=== PATIENT | male | born 1945 | race African-American/Black ===

== ENCOUNTER 2019-05-13 07:40 | Day surgery (SDC) | payer MEDICARE, OTHER ==
[2019-05-13 09:03] LABS: HEMATOCRIT 27.3 % (37.9-51.0); HEMOGLOBIN 9.3 g/dL (13.5-17.0); MEAN CORPUSCULAR HEMOGLOBIN 31.7 pg (27.0-33.4); MEAN CORPUSCULAR HGB CONC 34.2 g/dL (32.0-36.0); MEAN CORPUSCULAR VOLUME 92 fl (80-97); PLATELET COUNT 327 10^3/uL (150-450); RED BLOOD COUNT 2.95 10^6/uL (4.35-5.55); RED CELL DISTRIBUTION WIDTH 15.6 % (11.5-14.0); WHITE BLOOD COUNT 7.1 10^3/uL (4.0-10.5)
[2019-05-13 09:18] LABS: ANION GAP 12 (5-19); BLOOD UREA NITROGEN 39 mg/dL (7-20); CARBON DIOXIDE 28 mmol/L (22-30); CHLORIDE 97 mmol/L (98-107); GLUCOSE 149 mg/dL (75-110); POTASSIUM 5.2 mmol/L (3.6-5.0)
--- NOTE | 2019-05-13 09:48 | EKG REPORT ---
SEVERITY:- OTHERWISE NORMAL ECG - SINUS RHYTHM LEFT AXIS DEVIATION : Confirmed by: Yobani Miller MD 13-May-2019 09:47:42
[2019-05-13] MEDS ORDERED: FENTANYL CITRATE INJ/PF 100 MCG/2 ML AMPUL ONE (10:54)
[2019-05-13] MEDS ORDERED: MIDAZOLAM 2 MG/2 ML INJ ONE (10:54)
[2019-05-13] MEDS ORDERED: PROPOFOL INJ 200 MG/20 ML VIAL IV ONE (10:54)
[2019-05-13] MEDS ORDERED: ONDANSETRON HCL INJ/PF 4 MG/2 ML SDV ONE (10:54)
[2019-05-13] MEDS ORDERED: LIDOCAINE 2% INJ-PF (20 MG/ML) 10 ML AMPUL ONE (10:54)
[2019-05-13] MEDS ORDERED: LIDOCAINE 0.5% INJ-PF (5 MG/ML) 50 ML SDV ONE (10:56)
[2019-05-13] MEDS ORDERED: BUPIVACAINE HCL 0.25 % INJ/PF (2.5 MG/1 ML) 30 ML VIAL ONE (10:56)
--- NOTE | 2019-05-13 10:58 | PDOC H&P ---
General Chief Complaint: This patient has a nonfunctioning peritoneal dialysis catheter. He is currently dialyzed through a permacatheter. He is here today for removal of this catheter. It is hoped that a peritoneal dialysis catheter can be inserted in a month or so. - Current Medications/Allergies Home Medications: Aspirin [Aspir-Low] 81 mg PO DAILY 05/12/19 Furosemide [Lasix 20 mg Tablet] 20 mg PO QAM 05/12/19 Glimepiride [Amaryl 4 mg Tablet] 4 mg PO DAILY 05/12/19 Linagliptin [Tradjenta] 5 mg PO DAILY 05/12/19 Nifedipine [Nifedipine ER] 30 mg PO DAILY 05/12/19 Metformin HCl [Glucophage XR 500 mg Tablet] 1,000 mg PO BID 05/13/19 Rosuvastatin Calcium 10 mg PO DAILY 05/13/19 Allergies/Adverse Reactions: No Known Allergies Allergy (Unverified 05/12/19 14:00) Past Medical History Cardiac Medical History: Reports: Hypertension Denies: Coronary Artery Disease, Myocardial Infarction Pulmonary Medical History: Denies: Asthma, Bronchitis, Chronic Obstructive Pulmonary Disease (COPD), Pneumonia Neurological Medical History: Denies: Seizures Musculoskeltal Medical History: Denies: Arthritis Hematology: Denies: Anemia Family History Parental Family History Reviewed: No Children Family History Reviewed: No Sibling(s) Family History Reviewed.: No Social History Smoking Status: Former Smoker Physical Exam Vital Signs: Temp Pulse Resp BP Pulse Ox 98.5 F 66 16 116/69 100 05/13/19 08:15 05/13/19 08:15 05/13/19 08:15 05/13/19 08:15 05/13/19 08:15 Intake & Output 05/12/19 05/13/19 05/14/19 06:59 06:59 06:59 Intake Total 0 Balance 0 Weight 83.91 kg 83.91 kg Additional comments: Constitutional: Well-developed well-nourished -[place]wegian gentleman. No apparent acute distress. Eyes: Mucous membranes pink and moist, pupils equal and reactive to light. Conjunctiva normal. Cornea normal. ENT: Hearing grossly normal. External pinna normal to inspection. Teeth intact. Tongue normal to inspection. Cardiac: Heart sounds 1 and 2 normal, no murmurs. Respiratory: breath sounds are present bilaterally, normal. Normal respiratory effort. Chest: Right-sided PermCath in place. Abdomen: Soft, non tender. Liver and spleen are not palpably enlarged. Bowel sounds are normal. No hernia noted. Surgical scars present, peritoneal dialysis catheter noted. Psychiatric: Judgment, memory, insight seem normal. Mood is pleasant and appropriate. Extremities: Upper extremities show normal range of movement. Pulses present noted to the radial arteries. Capillary refill normal. No cyanosis noted. No muscle wasting noted. Lower extremities show normal range of movement. Pulses present noted to the dorsalis pedis artery. Capillary refill normal. No cyanosis noted. No muscle wasting noted. Neurovascular: No apparent tremors, gait normal. Sensation grossly intact. Hearing grossly normal. Vison grossly intact. Impression/Plan Plan: In this patient with a nonfunctional peritoneal dialysis catheter, on hemodialysis via right-sided permacatheter the peritoneal dialysis catheter is to be removed in anticipation of a long-term plan for dialysis. The procedure, its risks, benefits, expected outcome and alternatives are familiar to the patient and he wishes to proceed.
[2019-05-13] MEDS ORDERED: ONDANSETRON HCL INJ/PF 4 MG/2 ML SDV IV PRN (11:33)
[2019-05-13] MEDS ORDERED: FENTANYL CITRATE INJ/PF 100 MCG/2 ML AMPUL IV PRN ×3 (11:33)
[2019-05-13] MEDS ORDERED: DIPHENHYDRAMINE HCL 50 MG/ML VIAL IV PRN (11:33)
[2019-05-13] MEDS ORDERED: MEPERIDINE HCL/PF INJ 25 MG/1 ML DISP.SYRIN IV PRN (11:33)
[2019-05-13] MEDS ORDERED: PROMETHAZINE HCL INJ 25 MG/1 ML VIAL IV PRN ×2 (11:33)
--- NOTE | 2019-05-13 13:55 | Operative Report ---
Operative Report DATE OF SURGERY: 05/13/19 PREOPERATIVE DIAGNOSIS: 1. Malfunctioning tunneled dialysis catheter. 2. End- stage renal disease on dialysis. POSTOPERATIVE DIAGNOSIS: 1. Malfunctioning tunneled dialysis catheter. 2. End-stage renal disease on dialysis. OPERATION: Removal of malfunctioning peritoneal dialysis catheter. SURGEON: YUE SCHAEFER MANAGER CONTRACTING: None. ANESTHESIA: LMAC TISSUE REMOVED OR ALTERED: Not applicable. COMPLICATIONS: Only a portion of the catheter, the extraperitoneal portion was removed. ESTIMATED BLOOD LOSS: 5 mL. INTRAOPERATIVE FINDINGS: Of a peritoneal dialysis catheter exiting in the left midabdomen. To call us in the subcutaneous tissue were identified along with the catheter. While retrieving the remainder of the catheter there was a separation with retrieval of a metal connector as well as the external portion of the catheter. Efforts at locating the internal portion were unsuccessful and abandoned. Post procedure a KUB abdomen was done which confirmed the presence of the remaining intraperitoneal portion of catheter. The findings were discussed with the patient and he was given a photograph taken off the removed portion of catheter. I do recommend removal of the intraperitoneal portion and I believe this is best done laparoscopically. A new laparoscopically directed catheter could be inserted at this time. The patient is actually leaning towards having hemodialysis and this will require discussion. PROCEDURE: After obtaining informed consent and going over the procedure with, he was taken to the operating room, [he was] sedated and .The abdomen was prepped and draped in the usual sterile fashion. After the universal timeout, in which it was verified that the patient received IV antibiotic, the procedure commenced. The topographical location of the peritoneal dialysis catheter was sketched by palpating it on the anterior abdominal wall. With reference to the palpable catheter in the subcutaneous tissue a vertical incision was sketched about 3 cm in length, anesthetized and incision made. The dissection was carried through the subcutaneous tissues to the catheter. The catheter was now dissected free of the second internal cuff. The external portion of the catheter was now addressed through a slight extension in the existing exit site after obtaining local anesthesia. Both cuffs were dissected free of the subcutaneous tissue. The catheter was transected between the cuff for ease of dissection. Dissection now proceeded towards the internal catheter. The catheter was placed on traction and dissection proceeded retrograde towards the peritoneum. The catheter at this point spontaneously revealing a metal connector. The remaining catheter was sought by dissection in the subcutaneous tissues and beneath the rectus fascia. It was not located, probably had retracted into the peritoneal cavity. At this point it was felt best to complete the procedure by closing the incisions and to contemplate removal of the catheter at second setting. The patient had been desirous of a peritoneal catheter and therefore the old internal portion could be removed laparoscopically at the same time as insertion of a new catheter. As mentioned above these findings and thoughts were discussed with the patient. His questions and concerns were fully addressed. The wounds were now closed using interrupted sutures of 3-0 PDS. Dry gauze and tape applied and the procedure concluded.
--- NOTE | 2019-05-13 13:56 | RADIOLOGY REPORT (SQ) ---
EXAM DESCRIPTION: KUB/ABDOMEN (SINGLE VIEW) COMPLETED DATE/TIME: 05/13/2019 1:08 pm REASON FOR STUDY: POSSIBLE FOREIGN BODY Z99.2 DEPENDENCE ON RENAL DIALYSIS N18.6 END STAGE RENAL D ISEASE Z79.899 OTHER LONGTERM (CURRENT) DRUG THERAPY COMPARISON: None. NUMBER OF VIEWS: One view. TECHNIQUE: Supine radiographic image of the abdomen acquired. LIMITATIONS: None. FINDINGS: BOWEL GAS PATTERN: Normal bowel gas pattern. No dilated loops. CALCIFICATIONS: No suspicious calcifications. SOFT TISSUES: No gross mass or suggestion of organomegaly. HARDWARE: Thin coiled curvilinear metallic density overlies midline pelvis measuring approximately 8 cm. Additional linear metallic density within the left hemiabdomen favored to represent surgical ch ain vviek. BONES: Lower lumbar spondylosis. Degenerative changes at the hips. No acute findings. OTHER: No other significant finding. IMPRESSION: Coiled curvilinear metallic density overlies midline pelvis, compatible with foreign bod y and etiology uncertain. Additional linear metallic density within the left hemiabdomen favored represent surgical chain stapl es. Recommend correlation with surgical history. TECHNICAL DOCUMENTATION: JOB ID: [id number] [employer]- All Rights Reserved Reading location - IP/workstation name: [email or web address]
--- NOTE | 2019-05-13 14:13 | Discharge Summary ---
Discharge Summary (SDC) - Discharge Final Diagnosis: #1 malfunctioning port peritoneal dialysis catheter. 2. End-stage renal disease. Date of Surgery: 05/13/19 Discharge Date: 05/13/19 Forms: ASU Anesthesia D/C Instruction, Discharge POC-Surgical Service Treatment or Instructions: Discharge home [after recovery per ASU criteria]. Diet , [renal],as tolerated, when fully awake advance as tolerated. Activities within moderation encouraged. Follow up in my office by appointment in about [1 week]. Call for appointment. Leave wounds [covered], [keep clean and dry, until office visit in 1 week]. Hold of on school/work [until evaluation in office]. May shower [in 48 hrs], [try to keep operated area as dry as possible]. Referrals: BRAULIO HANCOCK MD [Primary Care Provider] - YUE MEANS MD [ACTIVE STAFF] - Discharge Diet: Other (Comments) - Renal. Respiratory Treatments at Home: Deep Breathing/Coughing Discharge Activity: Activity As Tolerated Home Care Assistance: None Needed Report the Following to Your Physician Immediately: Increase in Pain, Fever over 101 Degrees, Drainage-Yellow, Drainage-Alvarado, Drainage-Green, Drainage-Foul Smelling
[2019-05-13 14:41] VITALS: BP 135/69
== END 2019-05-13 14:40 | disposition home or self-care (01) ==
LOC: OROUT 07:40
PROVIDERS: ATTEND Surgery
DX: T85.611A Breakdown (mechanical) of intraperitoneal dialysis catheter, initial encounter (principal); Y83.2 Surgical operation with anastomosis, bypass or graft as the cause of abnormal reaction of the patient, or of later complication, without mention of misadventure at the time of the procedure; E11.22 Type 2 diabetes mellitus with diabetic chronic kidney disease; I12.0 Hypertensive chronic kidney disease with stage 5 chronic kidney disease or end stage renal disease; N18.6 End stage renal disease; Z99.2 Dependence on renal dialysis; Z79.899 Other long term (current) drug therapy; Z79.82 Long term (current) use of aspirin; Z79.84 Long term (current) use of oral hypoglycemic drugs
CPT/HCPCS: 36415; 85027; 80048; 88300 ×2; 74018; 93005; 93010; 49422; J2250; J3010; J3490 ×2; J2405; J2704; 700

== ENCOUNTER 2019-06-23 08:39 | Day surgery (SDC) | payer MEDICARE, OTHER ==
[2019-06-16 10:39] LABS: HEMATOCRIT 30.3 % (37.9-51.0); HEMOGLOBIN 10.2 g/dL (13.5-17.0); MEAN CORPUSCULAR HEMOGLOBIN 31.8 pg (27.0-33.4); MEAN CORPUSCULAR HGB CONC 33.5 g/dL (32.0-36.0); MEAN CORPUSCULAR VOLUME 95 fl (80-97); PLATELET COUNT 202 10^3/uL (150-450); RED BLOOD COUNT 3.19 10^6/uL (4.35-5.55); RED CELL DISTRIBUTION WIDTH 17.7 % (11.5-14.0); WHITE BLOOD COUNT 5.4 10^3/uL (4.0-10.5)
[2019-06-16 11:01] LABS: ANION GAP 17 (5-19); BLOOD UREA NITROGEN 65 mg/dL (7-20); CALCIUM 9.5 mg/dL (8.4-10.2); CARBON DIOXIDE 25 mmol/L (22-30); CHLORIDE 96 mmol/L (98-107); GLUCOSE 208 mg/dL (75-110)
[2019-06-16 11:07] LABS: POTASSIUM 6.1 mmol/L (3.6-5.0)
--- NOTE | 2019-06-16 12:10 | RADIOLOGY REPORT (SQ) ---
EXAM DESCRIPTION: CHEST PA/LATERAL COMPLETED DATE/TIME: 06/16/2019 11:35 am REASON FOR STUDY: PRE-OP COMPARISON: None. EXAM PARAMETERS: NUMBER OF VIEWS: two views TECHNIQUE: Digital Frontal and Lateral radiographic views of the chest acquired. RADIATION DOSE: NA LIMITATIONS: none FINDINGS: LUNGS AND PLEURA: There is pleural calcification bilaterally left greater than right. No consolidation or effusions. No pneumothorax. MEDIASTINUM AND HILAR STRUCTURES: No masses or contour abnormalities. HEART AND VASCULAR STRUCTURES: Heart normal size. No evidence for failure. BONES: No acute findings. HARDWARE: Dialysis catheter is in place on the right. OTHER: No other significant finding. IMPRESSION: NO SIGNIFICANT RADIOGRAPHIC FINDING IN THE CHEST. TECHNICAL DOCUMENTATION: JOB ID: [id number] [employer]- All Rights Reserved Reading location - IP/workstation name: [email or web address]
--- NOTE | 2019-06-16 17:19 | EKG REPORT ---
SEVERITY:- OTHERWISE NORMAL ECG - SINUS RHYTHM BORDERLINE LEFT AXIS DEVIATION : Confirmed by: Emily Walters MD 16-Jun-2019 17:18:11
[~2019-06-23 08:39] MED LIST: CEFAZOLIN 1 GM/D5W RTU 1 GM/50 ML RTUPB IV ONE; CEFAZOLIN 1 GM/D5W RTU 1 GM/50 ML RTUPB IV PRN; LIDOCAINE 0.5% INJ-PF (5 MG/ML) 50 ML SDV SUBCUT PRN; NORMAL SALINE 1000 ML (RENAL PATIENTS) IV PRN
[2019-06-23] MEDS ORDERED: BUPIVACAINE HCL 0.25 % INJ/PF (2.5 MG/1 ML) 30 ML VIAL ONE ×2 (09:25→10:45)
[2019-06-23] MEDS ORDERED: HEPARIN SOD (PORCINE) 1,000 UNIT/ML 10 ML VIAL ONE (09:25)
[2019-06-23] MEDS ORDERED: LIDOCAINE 0.5% INJ-PF (5 MG/ML) 50 ML SDV ONE (09:25)
[2019-06-23] MEDS ORDERED: LIDOCAINE 1% INJ-PF (10 MG/ML) 30 ML SDV ONE (09:25)
[2019-06-23] MEDS ORDERED: BACITRACIN INJ 50,000 UNIT VIAL ONE (09:25)
[2019-06-23] MEDS ORDERED: MIDAZOLAM 2 MG/2 ML INJ ONE (09:38)
[2019-06-23] MEDS ORDERED: FENTANYL CITRATE INJ/PF 100 MCG/2 ML AMPUL ONE (09:38)
[2019-06-23] MEDS ORDERED: PROPOFOL INJ 200 MG/20 ML VIAL IV ONE ×2 (09:38→11:48)
[2019-06-23] MEDS ORDERED: MORPHINE SULFATE 10 MG/ML INJ IV PRN (09:41)
[2019-06-23] MEDS ORDERED: FENTANYL CITRATE INJ/PF 100 MCG/2 ML AMPUL IV PRN ×3 (09:41)
[2019-06-23] MEDS ORDERED: MEPERIDINE HCL/PF INJ 25 MG/1 ML DISP.SYRIN IV PRN (09:41)
[2019-06-23] MEDS ORDERED: DIPHENHYDRAMINE HCL 50 MG/ML VIAL IV PRN (09:41)
[2019-06-23] MEDS ORDERED: PROMETHAZINE HCL INJ 25 MG/1 ML VIAL IV PRN ×2 (09:41)
[2019-06-23] MEDS ORDERED: NITROGLYCERIN/D5W 50 MG/250 ML RTUINJ IV ONE (09:45)
[2019-06-23 10:33] LABS: POTASSIUM 5.8 mmol/L (3.6-5.0)
[2019-06-23] MEDS ORDERED: LIDOCAINE 1%/EPINEPHRINE INJ 20 ML VIAL ONE (10:45)
--- NOTE | 2019-06-23 12:26 | Discharge Summary ---
Discharge Summary (SDC) - Discharge Final Diagnosis: #1 end-stage renal disease. 2. Diabetes mellitus. 3. Hypertension. Date of Surgery: 06/23/19 Discharge Date: 06/23/19 Condition: Good Treatment or Instructions: Discharge home [after recovery per ASU criteria]. Diet , [renal],as tolerated, when fully awake advance as tolerated. Activities within moderation encouraged. Follow up in my office by appointment in about [1 week]. Call for appointment. Leave wounds [covered], [keep clean and dry, until office visit in 1 week]. Hold of on school/work [until evaluation in office]. Meds per med rec. Percocet. May shower [in 48 hrs], [try to keep operated area as dry as possible]. Prescriptions: Oxycodone HCl/Acetaminophen [Percocet 5-325 mg Tablet] 1 tab PO ASDIR PRN #15 tab PRN Reason: Referrals: BRAULIO HANCOCK MD [Primary Care Provider] - Discharge Diet: Other (Comments) - Renal, diabetic. Respiratory Treatments at Home: Deep Breathing/Coughing Discharge Activity: Activity As Tolerated Report the Following to Your Physician Immediately: Shortness of Breath, Unusual Bleeding
--- NOTE | 2019-06-23 12:30 | Operative Report ---
Operative Report DATE OF SURGERY: 06/23/19 PREOPERATIVE DIAGNOSIS: #1 end-stage renal disease. 2. Diabetes mellitus. 3. Hypertension. POSTOPERATIVE DIAGNOSIS: #1 end-stage renal disease. 2. Diabetes mellitus. 3. Hypertension. OPERATION: Insertion of left brachiocephalic fistula. SURGEON: YUE SCHAEFER FLIGHT ENGINEER INSPECTOR: None. ANESTHESIA: Other - Nerve block, local LMAC TISSUE REMOVED OR ALTERED: Not applicable. COMPLICATIONS: None. ESTIMATED BLOOD LOSS: 5 mL. INTRAOPERATIVE FINDINGS: Of inadequate nerve block, no appreciable venous dilatation, supplemented with local anesthesia. The cephalic vein, deep branch was anastomosed into the distal brachial artery and radial artery. The forearm portion of the cephalic was thick-walled and small and this was doubly clamped and ligated. The anatomy is such that the cephalic drains into the both basilic and cephalic distribution of the arm. Dominance will be established in time. This will dictate any further procedures necessary. PROCEDURE: Operative Report PROCEDURE: After reviewing the procedure with the patient, he was taken to the operating room. The patient was sedated and the [left upper extremity] prepared with chlorhexidine and draped out with sterile linen. After the "" universal timeout", in which it was verified that the patient [received IV antibiotics] the procedure commenced. The sterilely sheathed ultrasound probe was used to evaluate the left venous and arterial systems, pertinent to the previously done vein mapping. Local anesthesia was infiltrated and a transverse incision made over the upper forearm, near the antecubital fossa. Dissection proceeded through the subcutaneous tissues down to the cephalic vein. This was dissected out proximally and distally for about 2 cm. Likewise major branches. The Bicipital aponeurosis was now incised longitudinally and the brachial artery dissected out for a distance of about 1.5 cm. Rubber loops were placed on either end. The patient was given 2500 units of heparin intravenously. The deep branch of the cephalic vein was transected and irrigated with heparinized solution. The distal branches were clipped Coronary dilators were accepted [up to 3.0mm]. The artery was controlled proximally and distally with rubber loops. An arteriotomy approximately [1 cm] in length was made, the artery was irrigated proximally and distally with heparinized solution. The transected vein was now spatulated , it was then anastomosed end to end to side into the brachial artery going into the radial. This was done using a continuous suture of 6-0 Prolene. Controls of the fistula were now released and it was analyzed using a Doppler probe. Hemostasis was secured once optimal function was assured, the wound was irrigated with antibiotic containing solution and closed. Closure was done using interrupted 3-0 PDS for the subcutaneous tissues. The skin was closed using a continuous subcutaneous suture of 4-0 Monocryl which was reinforced with Steri-Strips over benzoin. I then left the operative field and returned with a stethoscope covered with a sterile Tegaderm dressing. This allowed external auscultation of the fistula. Auscultation was [satisfactory]. The procedure was concluded by applying a Kerlix dressing over the surgical site. DICTATING PHYSICIAN: YUE MEANS M.D.
[2019-06-23] MEDS ORDERED: OXYCODONE-ACETAMINOPHEN 5-325 MG TABLET PO PRN (12:53)
[2019-06-23 14:33] VITALS: BP 139/79
== END 2019-06-23 14:05 | disposition home or self-care (01) ==
LOC: OROUT 08:39
PROVIDERS: ATTEND Surgery
DX: I12.0 Hypertensive chronic kidney disease with stage 5 chronic kidney disease or end stage renal disease (principal); E11.22 Type 2 diabetes mellitus with diabetic chronic kidney disease; N18.6 End stage renal disease; Z01.818 Encounter for other preprocedural examination; Z79.899 Other long term (current) drug therapy; Z99.2 Dependence on renal dialysis; Z79.82 Long term (current) use of aspirin; Z79.84 Long term (current) use of oral hypoglycemic drugs; Q60.0 Renal agenesis, unilateral; Z88.2 Allergy status to sulfonamides; Z85.53 Personal history of malignant neoplasm of renal pelvis
CPT/HCPCS: 62270; 93005; 36415 ×2; 82947; 84132; 85027; 80048; 71046; 93010; 36821; J2250; J3490 ×5; J0690; J3010; J1644; J2704; 1844

== ENCOUNTER 2019-08-11 09:56 | Day surgery (SDC) | payer MEDICARE, OTHER ==
--- NOTE | 2019-08-04 10:55 | RADIOLOGY REPORT (SQ) ---
EXAM DESCRIPTION: CHEST PA/LATERAL COMPLETED DATE/TIME: 08/04/2019 10:09 am REASON FOR STUDY: PRE-OP COMPARISON: PA and lateral views of the chest from 06/16/2019. EXAM PARAMETERS: NUMBER OF VIEWS: two views TECHNIQUE: PA and lateral views of the chest were obtained. RADIATION DOSE: NA LIMITATIONS: none FINDINGS: LUNGS AND PLEURA: Calcified pleural plaques without a superimposed acute consolidation, si zeable pleural effusion or pneumothorax. MEDIASTINUM AND HILAR STRUCTURES: No mediastinal or hilar contour abnormality. HEART AND VASCULAR STRUCTURES: The cardiac silhouette and pulmonary vasculature are within normal pearson its. BONES: No acute findings. HARDWARE: Right IJ approach tunneled HD catheter. OTHER: No other finding. IMPRESSION: No acute cardiopulmonary process. TECHNICAL DOCUMENTATION: JOB ID: [id number] 2010 [employer]- All Rights Reserved Reading location - IP/workstation name: [email or web address]
[2019-08-04 11:18] LABS: HEMATOCRIT 39.6 % (37.9-51.0); HEMOGLOBIN 13.2 g/dL (13.5-17.0); MEAN CORPUSCULAR HEMOGLOBIN 31.8 pg (27.0-33.4); MEAN CORPUSCULAR HGB CONC 33.4 g/dL (32.0-36.0); MEAN CORPUSCULAR VOLUME 95 fl (80-97); PLATELET COUNT 221 10^3/uL (150-450); RED BLOOD COUNT 4.16 10^6/uL (4.35-5.55); RED CELL DISTRIBUTION WIDTH 16.5 % (11.5-14.0); WHITE BLOOD COUNT 5.1 10^3/uL (4.0-10.5)
[2019-08-04 11:44] LABS: ANION GAP 16 (5-19); BLOOD UREA NITROGEN 73 mg/dL (7-20); CALCIUM 9.3 mg/dL (8.4-10.2); CARBON DIOXIDE 24 mmol/L (22-30); CHLORIDE 99 mmol/L (98-107); GLUCOSE 172 mg/dL (75-110); POTASSIUM 5.3 mmol/L (3.6-5.0)
[~2019-08-11 09:56] MED LIST changes: -CEFAZOLIN 1 GM/D5W RTU 1 GM/50 ML RTUPB IV ONE; +FENTANYL CITRATE INJ/PF 100 MCG/2 ML AMPUL ONE; +MIDAZOLAM 2 MG/2 ML INJ ONE; -NORMAL SALINE 1000 ML (RENAL PATIENTS) IV PRN; +ONDANSETRON HCL INJ/PF 4 MG/2 ML SDV ONE; +PROPOFOL INJ 200 MG/20 ML VIAL IV ONE
[2019-08-11] MEDS ORDERED: BACITRACIN INJ 50,000 UNIT VIAL ONE (10:33)
[2019-08-11] MEDS ORDERED: BUPIVACAINE HCL 0.25 % INJ/PF (2.5 MG/1 ML) 30 ML VIAL ONE (10:33)
[2019-08-11] MEDS ORDERED: LIDOCAINE 0.5% INJ-PF (5 MG/ML) 50 ML SDV ONE (10:33)
[2019-08-11] MEDS ORDERED: HEPARIN SOD (PORCINE) 1,000 UNIT/ML 10 ML VIAL ONE (10:33)
[2019-08-11] MEDS ORDERED: LIDOCAINE 1% INJ-PF (10 MG/ML) 30 ML SDV ONE (10:33)
[2019-08-11] MEDS ORDERED: CEFAZOLIN 1 GM/D5W RTU 1 GM/50 ML RTUPB IV ONE (10:44)
[2019-08-11] MEDS ORDERED: LIDOCAINE 2% INJ (20 MG/ML) 20 ML MDV ONE (11:45)
[2019-08-11] MEDS ORDERED: BUPIVACAINE HCL 0.5 % INJ/PF 30 ML SDV ONE (11:45)
[2019-08-11] MEDS ORDERED: PROMETHAZINE HCL INJ 25 MG/1 ML VIAL IV PRN ×2 (12:46)
[2019-08-11] MEDS ORDERED: MEPERIDINE HCL/PF INJ 25 MG/1 ML DISP.SYRIN IV PRN (12:46)
[2019-08-11] MEDS ORDERED: ONDANSETRON HCL INJ/PF 4 MG/2 ML SDV IV PRN (12:46)
[2019-08-11] MEDS ORDERED: FENTANYL CITRATE INJ/PF 100 MCG/2 ML AMPUL IV PRN ×3 (12:46)
[2019-08-11] MEDS ORDERED: DIPHENHYDRAMINE HCL 50 MG/ML VIAL IV PRN (12:46)
--- NOTE | 2019-08-11 13:24 | Discharge Summary ---
Discharge Summary (SDC) - Discharge Final Diagnosis: #1 malfunctioning AV fistula, left brachiocephalic. 2. End-stage renal disease on hemodialysis via permacatheter. 3. Diabetes mellitus type 2. 4. Hypertension. Date of Surgery: 08/11/19 Discharge Date: 08/11/19 Condition: Good Treatment or Instructions: Discharge home [after recovery per ASU criteria]. Diet , [renal],as tolerated, when fully awake advance as tolerated. Activities within moderation encouraged. Follow up in my office by appointment in about [1 week]. Call for appointment. Leave wounds [covered], [keep clean and dry, until office visit in 1 week]. Meds per med rec. May shower [in 48 hrs], [try to keep operated area as dry as possible]. Referrals: BRAULIO HANCOCK MD [Primary Care Provider] - Discharge Diet: Diabetic, Other (Comments) - Renal. Respiratory Treatments at Home: Deep Breathing/Coughing Discharge Activity: Activity As Tolerated Report the Following to Your Physician Immediately: Shortness of Breath, Unusual Bleeding
--- NOTE | 2019-08-11 13:31 | Operative Report ---
Operative Report DATE OF SURGERY: 08/11/19 PREOPERATIVE DIAGNOSIS: #1 malfunctioning AV fistula, left brachiocephalic. 2. End-stage renal disease on hemodialysis via permacatheter. 3. Diabetes mellitus type 2. 4. Hypertension. POSTOPERATIVE DIAGNOSIS: #1 malfunctioning AV fistula, left brachiocephalic. 2. End-stage renal disease on hemodialysis via permacatheter. 3. Diabetes mellitus type 2. 4. Hypertension. OPERATION: Ligation of branch of AV fistula, left brachiocephalic. SURGEON: YUE SCHAEFER OPERATIONS TRAINER: None. ANESTHESIA: LMAC TISSUE REMOVED OR ALTERED: Not applicable. COMPLICATIONS: None. ESTIMATED BLOOD LOSS: 2 mL. INTRAOPERATIVE FINDINGS: Of a well founded left brachiobasilic fistula. The cephalic component somewhat weak due to a very large runoff into the basilic. The decision was made to ligate the basilic component allowing the cephalic component to thrive. This is a challenging decision as the basilic was also mature enough for maturation. The decision is based on the much larger operation necessary for the basilic versus central ligation to maintain the cephalic. Also ligation of the lateral branch of the basilic lesions the medial for future transposed basilic. Post procedure of the cephalic is nicely palpable estimate use in 1 week. PROCEDURE: Operative Report PROCEDURE: After reviewing the procedure with the patient, he was taken to the operating room. The patient was sedated and the [left upper extremity] prepared with chlorhexidine and draped out with sterile linen. After the "" universal timeout", in which it was verified that the patient [received IV antibiotics] the procedure commenced. The sterilely sheathed Doppler probe was used to evaluate the left venous and arterial systems, pertinent to the previously done fistula evaluation. Local anesthesia was infiltrated and a transverse incision made over the upper forearm, near the antecubital fossa. Dissection proceeded through the subcutaneous tissues down to the basilic vein. The vein was dissected out about a centimeter and a half away from the cephalic. It was surrounded with a rubber loop. While temporarily closing this the cephalic was evaluated. The improvement was dramatic with excellent continuous murmur in the cephalic. This should ensure confident use within a short time. Ligation of the basilic was no completed by ligation with 3-0 Vicryl. 2 such ties were made. Wound closure was done using interrupted 3-0 PDS for the subcutaneous tissues. The skin was closed using a continuous subcutaneous suture of 4-0 Monocryl which was reinforced with Steri-Strips over benzoin. The procedure was concluded by applying a dressing over the surgical site. DICTATING PHYSICIAN: YUE MEANS M.D.
[2019-08-11 15:11] VITALS: BP 156/85
== END 2019-08-11 14:50 | disposition home or self-care (01) ==
LOC: OROUT 09:56
PROVIDERS: ATTEND Surgery
DX: T82.858A Stenosis of other vascular prosthetic devices, implants and grafts, initial encounter (principal); Y83.2 Surgical operation with anastomosis, bypass or graft as the cause of abnormal reaction of the patient, or of later complication, without mention of misadventure at the time of the procedure; E11.22 Type 2 diabetes mellitus with diabetic chronic kidney disease; I12.0 Hypertensive chronic kidney disease with stage 5 chronic kidney disease or end stage renal disease; N18.6 End stage renal disease; Z99.2 Dependence on renal dialysis; Z90.5 Acquired absence of kidney; Z85.528 Personal history of other malignant neoplasm of kidney; Z79.82 Long term (current) use of aspirin; Z79.899 Other long term (current) drug therapy; Z79.84 Long term (current) use of oral hypoglycemic drugs
CPT/HCPCS: 36415 ×2; 82962; 84132; 85027; 80048; 71046; 36821; J2250; J3490 ×3; J0690; J3010; J1644; J2405; J2704; 1844

== ENCOUNTER → 2019-11-05 | Outpatient (CLI) | payer MEDICARE, OTHER ==
--- NOTE | 2019-11-05 08:31 | RADIOLOGY REPORT (SQ) ---
EXAM DESCRIPTION: CHEST PA/LATERAL IMAGES COMPLETED DATE/TIME: 11/05/2019 8:17 am REASON FOR STUDY: HYPOTENSION, UNSPECIFIED COMPARISON: 08/04/2019 EXAM PARAMETERS: NUMBER OF VIEWS: two views TECHNIQUE: Digital Frontal and Lateral radiographic views of the chest acquired. RADIATION DOSE: NA LIMITATIONS: none FINDINGS: LUNGS AND PLEURA: No opacities, masses or pneumothorax. No pleural effusion. Bilateral ca lcified pleural plaques again noted. MEDIASTINUM AND HILAR STRUCTURES: No masses or contour abnormalities. HEART AND VASCULAR STRUCTURES: Heart normal size. No evidence for failure. BONES: No acute findings. HARDWARE: Right internal jugular hemodialysis catheter with tip at cavoatrial junction. OTHER: No other significant finding. IMPRESSION: No evidence of acute cardiopulmonary process. Calcified bilateral pleural plaques which can be seen with prior asbestos exposure. TECHNICAL DOCUMENTATION: JOB ID: [id number] 2010 [employer]- All Rights Reserved Reading location - IP/workstation name: [email or web address]
== END ==
LOC: OD 07:50
PROVIDERS: ATTEND Internal Medicine Nephrology
DX: I95.9 Hypotension, unspecified (principal)
CPT/HCPCS: 36415; 71046; 82533

== ENCOUNTER 2019-12-11 12:51 | Day surgery (SDC) | payer MEDICARE, OTHER ==
[~2019-12-11 12:51] MED LIST changes: +BUPIVACAINE HCL 0.75% INJ/PF (7.5 MG/1 ML) 10 ML SDV OD PRN; -CEFAZOLIN 1 GM/D5W RTU 1 GM/50 ML RTUPB IV PRN; +KETOROLAC TROMETHAMINE 0.45% 4 DROP/0.4 ML DROPERETTE OD PRN; -LIDOCAINE 0.5% INJ-PF (5 MG/ML) 50 ML SDV SUBCUT PRN; +LIDOCAINE 4% INJ/PF (40 MG/ML) 5 ML AMPUL OD PRN; -PROPOFOL INJ 200 MG/20 ML VIAL IV ONE
[2019-12-11] MEDS: TETRACAINE HCL 0.5% OPH SOLN 4 ML OD PRN ×3 (13:11→13:42)
[2019-12-11] MEDS: TROPICAMIDE 1% OPH SOLN 15 ML OD PRN ×3 (13:11→13:35)
[2019-12-11] MEDS: CYCLOPENTOLATE 0.2%/PHENYLEPHRINE 1% OPH SOLN 2 ML OD PRN ×3 (13:12→13:35)
[2019-12-11] MEDS: BESIFLOXACIN HCL 0.6% OPH SUSP 5 ML BOTTLE OD PRN ×4 (13:12→14:21)
[2019-12-11] MEDS: CHONDR SU A NA/HYALUR INTRAOC KIT (SURGICARE) ONE ×2 (14:01)
[2019-12-11] MEDS: LIDOCAINE 1% INJ-PF (10 MG/ML) 30 ML SDV ONE ×2 (14:01)
[2019-12-11] MEDS: EPINEPHRINE INJ/PF 1 MG/1 ML AMPULE ONE ×2 (14:01)
[2019-12-11] MEDS: DORZOLAMIDE HCL 2%/TIMOLOL MALEAT 0.5% OPH SOLN 10 ML OD PRN ×2 (14:21)
--- NOTE | 2019-12-11 19:43 | Operative Report ---
Operative Report[facility] Operative Report: PREOPERATIVE DIAGNOSIS: Nuclear, cortical and posterior subcapsular cataract, right eye POSTOPERATIVE DIAGNOSIS: Nuclear, cortical and posterior subcapsular cataracts, right eye PROCEDURE: Phacoemulsification and posterior chamber intraocular lens implant, right eye PROCEDURE DATE: [December 11, 2019] SURGEON: Stuart Swan MD Next STUDIO MUSICIAN: [Jelena] ANESTHESIA: Topical with IV sedation next COMPLICATIONS: None TISSUE TO PATHOLOGY: None ESTIMATED BLOOD LOSS: None INDICATION FOR SURGERY: [Mr. Torres is a 74 year old male] Who presents to our clinic complaining of difficulty seeing, to read and drive due to blurry vision in both eyes. On examination, she was found to have best corrected visual acuity of [20/40] in the right eye. Ophthalmoscopy revealed a [+1] nuclear, [+3] corneal degeneration, [trace] posterior subcapsular cataract in the right eye with normal appearing cornea, vitreous, retina and optic nerve. I discussed the findings of the exam with the patient. We discussed the risks, benefits and alternatives of cataract extraction and intraocular lens implant in the right eye as a means of improving her vision. Risks that were discussed with the patient include infection, bleeding, retinal detachment and possible need for additional surgery. The patient understands that she may need to wear glasses after surgery. After discussion, the patient indicated her interest in having this procedure performed by signing an informed witness consent form. REPORT OF PROCEDURE: On the day of surgery, the patient was given a topical application to the right eye to consist of drop of Tetracaine 0.5%, tropicamide 1%, Cyclomidril, Besivance 0.6% and Acular 0.45%. The patient was then taken to the operating room in a supine position in a standard eye bed. Intravenous sedation was administered and she was prepped and draped in the standard fashion. A timeout was performed to confirm the surgical site. Attention was directed to the right eye where a paracentesis was created at the 11:30 position at the corneal limbus with a 15 degree blade. The anterior chamber was filled with 0.3 mL of 1% methylparaben free lidocaine and after 30 seconds the anterior chamber was filled with viscoelastic material. A 3 plane corneal incision was then made at the 9 o'clock position at the cornea limbus with a keratome. A continuous curvilinear capsulorrhexis was then made in the anterior capsule of the lens with a cystotome. The lens was hydrodissected using balanced saline solution. The lens nucleus was then removed by phacoemulsification using the stop and chop technique. CDE [7.35]. The remaining cortical material was then removed from the posterior capsular bag using irrigation and aspiration. The posterior capsule bag was filled with viscoelastic material and a lens implant was inserted into the posterior capsule bag. I have chosen for this case is a one piece acrylic lens from [employer] model [SN60WF] serial number [[id number]] lens power [21.0]. The lens was removed from its package, inspected and found to be free of defects it was loaded into a [place] D separator inserter. The separator inserter was passed through the temporal wound and the lens was advanced into the posterior capsular bag. The lens implant was centered in the posterior capsular bag with the [place] spatula the viscoelastic material was removed from the eye using irrigation and aspiration. The wounds were closed by stromal hydration and they were tested with the Weck-Shandra sponges and found to have no leaks. Intraocular pressure was assessed by manual palpitation found to be with in the physiologic range. The drape and speculum were removed. Drops of Durezol, Combigan and gatifloxacin were instilled in the right eye. The patient was then taken to the recovery room in good condition. The patient tolerated the procedure very well. The patient was given a prescription for gatifloxacin, Durezol and Ilervo to use every 2 hours while awake today. She will return my clinic tomorrow for follow-up evaluation.
== END 2019-12-11 14:53 | disposition home or self-care (01) ==
LOC: SC 12:51
PROVIDERS: ATTEND Ophthalmology
DX: H25.813 Combined forms of age-related cataract, bilateral (principal); E11.3593 Type 2 diabetes mellitus with proliferative diabetic retinopathy without macular edema, bilateral; E78.00 Pure hypercholesterolemia, unspecified; I12.0 Hypertensive chronic kidney disease with stage 5 chronic kidney disease or end stage renal disease; E11.22 Type 2 diabetes mellitus with diabetic chronic kidney disease; N18.6 End stage renal disease; N40.0 Benign prostatic hyperplasia without lower urinary tract symptoms; Z99.2 Dependence on renal dialysis; Z79.82 Long term (current) use of aspirin; Z79.84 Long term (current) use of oral hypoglycemic drugs; Z79.899 Other long term (current) drug therapy
CPT/HCPCS: 82962; 66984; V2632; J2250; J3490 ×3; A9270; J0171; J3010; J2405

== ENCOUNTER 2020-02-12 13:56 | Day surgery (SDC) | payer MEDICARE, OTHER ==
[~2020-02-12 13:56] MED LIST changes: -BUPIVACAINE HCL 0.75% INJ/PF (7.5 MG/1 ML) 10 ML SDV OD PRN; +CHONDR SU A NA/HYALUR INTRAOC KIT (SURGICARE) ONE; +EPINEPHRINE INJ/PF 1 MG/1 ML AMPULE ONE; -FENTANYL CITRATE INJ/PF 100 MCG/2 ML AMPUL ONE; -KETOROLAC TROMETHAMINE 0.45% 4 DROP/0.4 ML DROPERETTE OD PRN; +KETOROLAC TROMETHAMINE 0.45% 4 DROP/0.4 ML DROPERETTE OS PRN; +LIDOCAINE 1%/PHENYLEPHRINE 1.5% 0.8 ML SYRINGE ONE; -LIDOCAINE 4% INJ/PF (40 MG/ML) 5 ML AMPUL OD PRN; -MIDAZOLAM 2 MG/2 ML INJ ONE; -ONDANSETRON HCL INJ/PF 4 MG/2 ML SDV ONE
[2020-02-12] MEDS: TROPICAMIDE 1% OPH SOLN 15 ML OS PRN ×3 (15:32→15:52)
[2020-02-12] MEDS: CYCLOPENTOLATE 0.2%/PHENYLEPHRINE 1% OPH SOLN 2 ML OS PRN ×3 (15:32→15:52)
[2020-02-12] MEDS: BESIFLOXACIN HCL 0.6% OPH SUSP 5 ML BOTTLE OS PRN ×4 (15:32→16:26)
[2020-02-12] MEDS: TETRACAINE HCL 0.5% OPH SOLN 4 ML OS PRN ×3 (15:33→16:08)
[2020-02-12] MEDS ORDERED: MIDAZOLAM 2 MG/2 ML INJ ONE (15:56)
[2020-02-12] MEDS ORDERED: FENTANYL CITRATE INJ/PF 100 MCG/2 ML AMPUL ONE (15:56)
[2020-02-12] MEDS: DORZOLAMIDE HCL 2%/TIMOLOL MALEAT 0.5% OPH SOLN 10 ML OS PRN ×2 (16:26)
--- NOTE | 2020-02-12 22:29 | Operative Report ---
Operative Report[facility] Operative Report: PREOPERATIVE DIAGNOSIS: Nuclear, cortical and posterior subcapsular cataract, left eye POSTOPERATIVE DIAGNOSIS: Nuclear, cortical and posterior subcapsular cataracts, left eye PROCEDURE: Phacoemulsification and posterior chamber intraocular lens implant, left eye PROCEDURE DATE: [February 12, 2020] SURGEON: Stuart Swan MD Next TUBE DRAWER: [Noe Jeffrey] ANESTHESIA: Topical with IV sedation next COMPLICATIONS: None TISSUE TO PATHOLOGY: None ESTIMATED BLOOD LOSS: None INDICATION FOR SURGERY: [Mr. Torres is a 74 year old male] Who presents to our clinic complaining of difficulty seeing, to read and drive due to blurry vision in both eyes. On examination, she was found to have best corrected visual acuity of [20/40] in the left eye. Ophthalmoscopy revealed a [+2] nuclear, [+3] corneal degeneration, [+1] posterior subcapsular cataract in the left eye with normal appearing cornea, vitreous, retina and optic nerve. I discussed the findings of the exam with the patient. We discussed the risks, benefits and alternatives of cataract extraction and intraocular lens implant in the left eye as a means of improving her vision. Risks that were discussed with the patient include infection, bleeding, retinal detachment and possible need for additional surgery. The patient understands that she may need to wear glasses after surgery. After discussion, the patient indicated her interest in having this procedure performed by signing an informed witness consent form. REPORT OF PROCEDURE: On the day of surgery, the patient was given a topical application to the left eye to consist of drop of Tetracaine 0.5%, tropicamide 1%, Cyclomidril, Besivance 0.6% and Acular 0.45%. The patient was then taken to the operating room in a supine position in a standard eye bed. Intravenous sedation was administered and she was prepped and draped in the standard fashion. A timeout was performed to confirm the surgical site. Attention was directed to the left eye where a paracentesis was created at the 5:30 position at the corneal limbus with a 15 degree blade. The anterior chamber was filled with 0.3 mL of 1% methylparaben free lidocaine and after 30 seconds the anterior chamber was filled with viscoelastic material. A 3 plane corneal incision was then made at the 3 o'clock position at the cornea limbus with a keratome. A continuous curvilinear capsulorrhexis was then made in the anterior capsule of the lens with a cystotome. The lens was hydrodissected using balanced saline solution. The lens nucleus was then removed by phacoemulsification using the stop and chop technique. CDE [8.68]. The remaining cortical material was then removed from the posterior capsular bag using irrigation and aspiration. The posterior capsule bag was filled with viscoelastic material and a lens implant was inserted into the posterior capsule bag. I have chosen for this case is a one piece acrylic lens from [employer] model [SN60WF], serial number [[id number]], lens power [21.5]. The lens was removed from its package, inspected and found to be free of defects it was loaded into a [employer] D inser ter. The dry transfer worker was passed through the temporal wound and the lens was advanced into the posterior capsular bag. The lens implant was centered in the posterior capsular bag with the [place] spatula the viscoelastic material was removed from the eye using irrigation and aspiration. The wounds were closed by stromal hydration and they were tested with the Weck-Shandra sponges and found to have no leaks. Intraocular pressure was assessed by manual palpitation found to be with in the physiologic range. The drape and speculum were removed. Drops of Durezol, Combigan and gatifloxacin were instilled in the left eye. The patient was then taken to the recovery room in good condition. The patient tolerated the procedure very well. The patient was given a prescription for gatifloxacin, Durezol and Ilervo to use every 2 hours while awake today. She will return my clinic tomorrow for follow-up evaluation.
== END 2020-02-12 16:53 | disposition home or self-care (01) ==
LOC: SC 13:56
PROVIDERS: ATTEND Ophthalmology
DX: H25.812 Combined forms of age-related cataract, left eye (principal); E11.9 Type 2 diabetes mellitus without complications; I10 Essential (primary) hypertension; E78.00 Pure hypercholesterolemia, unspecified; N28.9 Disorder of kidney and ureter, unspecified; Z79.84 Long term (current) use of oral hypoglycemic drugs; Z79.899 Other long term (current) drug therapy; Z83.511 Family history of glaucoma
CPT/HCPCS: 82962; 00142; 66984; V2632; J2250; J3490 ×3; A9270; J0171; J3010; 142

== ENCOUNTER 2020-06-08 09:43 | Inpatient (IN) | payer MEDICARE, OTHER ==
[2020-06-08] MEDS ORDERED: ONDANSETRON 4 MG TAB.RAPDIS PO ONE (10:14)
[2020-06-08] MEDS ORDERED: ACETAMINOPHEN 325 MG TABLET PO ONE (10:17)
--- NOTE | 2020-06-08 10:19 | ER Document Report ---
ED Medical Screen (RME) - General Stated Complaint: LOWER BACK PAIN Time Seen by Provider: 06/08/20 10:08 Primary Care Provider: BRAULIO HANCOCK MD [Primary Care Provider] - Follow up as needed TRAVEL OUTSIDE OF THE [place] IN LAST 30 DAYS: No - HPI Notes: 06/08/20 10:15 74-year-old male with a history of non insulin-dependent diabetes, hypertension on dialysis presents to the emergency room from dialysis due to sudden onset vomiting, weakness which states caused his lower back pain. Denies any chest pain or shortness of breath. Patient reports that his blood sugar was 35, he started vomiting which then caused his lower back pain. Denies any fevers or chills. Denies any bowel or bladder dysfunction, no saddle anesthesia. No prior history of back issues. Patient reports pain is 5 out of 5, throbbing. Patient was unable to get dialysis today, last dialysis appt was on Sunday, June 05, 2020. Patient has not tried any siqu-trn-rwidujl medications. Blood sugar in triage 110 I have greeted and performed a rapid initial assessment of this patient. A comprehensive ED assessment and evaluation of the patient, analysis of test results and completion of the medical decision making process will be conducted by additional ED providers. PHYSICAL EXAMINATION: GENERAL: Acutely ill, well-nourished and in mild distress HEAD: Atraumatic, normocephalic. EYES: Pupils equal round extraocular movements intact, conjunctiva are normal. CV: s1, s2 regular LUNGS: No respiratory distress Musculoskeletal: in wheelchair. LS spine tenderness on palpation. NEUROLOGICAL: Normal speech SKIN: Warm, Dry, normal turgor, no rashes or lesions noted. The patient was evaluated during a global COVID-19 pandemic and that diagnosis was suspected/considered upon their initial presentation. Their evaluation, treatment and testing was consistent with current guidelines for patients who present with complaints or symptoms and may be related to COVID-19. 06/08/20 10:18 - Related Data Allergies/Adverse Reactions: No Known Allergies Allergy (Verified 02/12/20 15:47) Past Medical History - Past Medical History Cardiac Medical History: Reports: Hx Hypercholesterolemia, Hx Hypertension - MEDS Denies: Hx Coronary Artery Disease, Hx Heart Attack Pulmonary Medical History: Denies: Hx Asthma, Hx Bronchitis, Hx COPD, Hx Pneumonia Neurological Medical History: Denies: Hx Cerebrovascular Accident, Hx Seizures Endocrine Medical History: Reports: Hx Diabetes Mellitus Type 2 Renal/ Medical History: Reports: Hx Renal Insufficiency. Denies: Hx Peritoneal Dialysis GI Medical History: Denies: Hx Hepatitis, Hx Hiatal Hernia, Hx Ulcer Musculoskeltal Medical History: Denies Hx Arthritis Infectious Medical History: Denies: Hx Hepatitis Past Surgical History: Reports: Hx Appendectomy, Hx Kidney (Renal Surgery) - kidney removed, Other - Nephrectomy. Denies: Hx Open Heart Surgery, Hx Pacemaker - Immunizations Hx Diphtheria, Pertussis, Tetanus Vaccination: Yes Physical Exam - Vital signs Vitals: Pulse Resp BP Pulse Ox 103 H 24 H 188/74 H 100 06/08/20 10:05 06/08/20 10:05 06/08/20 10:05 06/08/20 10:05 Course - Vital Signs Vital signs: Temp Pulse Resp BP Pulse Ox 103 H 24 H 188/74 H 100 06/08/20 10:05 06/08/20 10:05 06/08/20 10:05 06/08/20 10:05 Doctor's Discharge - Discharge Referrals: BRAULIO HANCOCK MD [Primary Care Provider] - Follow up as needed
[2020-06-08 10:51] LABS: HEMATOCRIT 36.6 % (37.9-51.0); HEMOGLOBIN 11.4 g/dL (13.5-17.0); MEAN CORPUSCULAR HEMOGLOBIN 31.1 pg (27.0-33.4); MEAN CORPUSCULAR HGB CONC 31.2 g/dL (32.0-36.0); MEAN CORPUSCULAR VOLUME 100 fl (80-97); PLATELET COUNT 240 10^3/uL (150-450); RED BLOOD COUNT 3.67 10^6/uL (4.35-5.55); RED CELL DISTRIBUTION WIDTH 17.1 % (11.5-14.0); WHITE BLOOD COUNT 17.3 10^3/uL (4.0-10.5)
--- NOTE | 2020-06-08 11:04 | RADIOLOGY REPORT (SQ) ---
EXAM DESCRIPTION: L SPINE WHOLE IMAGES COMPLETED DATE/TIME: 06/08/2020 10:51 am REASON FOR STUDY: sudden onset LBP, on trauma/fall COMPARISON: None. NUMBER OF VIEWS: Five views including obliques. TECHNIQUE: AP, lateral, oblique, and sacral radiographic images acquired of the lumbar spine. LIMITATIONS: None. FINDINGS: MINERALIZATION: Normal. SEGMENTATION: Normal. No transitional anatomy. ALIGNMENT: Grade 1 anterolisthesis of L5 on S1. VERTEBRAE: Maintained height. No fracture or worrisome bone lesion. DISCS: Preserved height. No significant osteophytes or end plate irregularity. POSTERIOR ELEMENTS: Facet arthropathy at C3-4, C4-5 and L5-S1. HARDWARE: None in the spine. PARASPINAL SOFT TISSUES: Normal. PELVIS: Intact as visualized. No fractures or worrisome bone lesions. SI joints intact. OTHER: No other significant finding. IMPRESSION: Grade 1 anterolisthesis of L5 on S1 with facet arthropathy at the lower 3 disc space lev els. TECHNICAL DOCUMENTATION: JOB ID: [id number] 2010 [employer]- All Rights Reserved Reading location - IP/workstation name: [email or web address]
[2020-06-08 11:08] LABS: ALBUMIN 5.4 g/dL (3.5-5.0); ALKALINE PHOSPHATASE 93 U/L (38-126); ASPARTATE AMINO TRANSFERASE 35 U/L (17-59); BILIRUBIN,DIRECT 0.5 mg/dL (0.0-0.4); BILIRUBIN,TOTAL 0.5 mg/dL (0.2-1.3); BLOOD UREA NITROGEN 54 mg/dL (7-20); CALCIUM 10.1 mg/dL (8.4-10.2); CHLORIDE 90 mmol/L (98-107); GLUCOSE 104 mg/dL (75-110); POTASSIUM 4.7 mmol/L (3.6-5.0); TOTAL PROTEIN 8.5 g/dL (6.3-8.2)
[2020-06-08] MEDS ORDERED: LORAZEPAM INJ 2 MG/1 ML VIAL IV ONE ×2 (11:16→12:28)
[2020-06-08 11:30] LABS: INTERNATIONAL RATION (INR) 1.31; PROTHROMBIN TIME 16.5 SEC (11.4-15.4)
[2020-06-08 11:39] LABS: CARBON DIOXIDE < 5 mmol/L (22-30)
[2020-06-08 11:56] LABS: VENOUS BLOOD BASE EXCESS -28.6 mmol/L; VENOUS BLOOD HCO3 5.3 mmol/L (20-32); VENOUS BLOOD PCO2 33.2 mmHg (35-63)
[2020-06-08 12:07] LABS: VENOUS BLOOD PH 6.82 (7.30-7.42)
[2020-06-08] MEDS ORDERED: NORMAL SALINE 500 ML IV ONE (12:42)
[2020-06-08 12:47] LABS: ARTERIAL BLOOD H2CO3 0.68 mmol/L (1.05-1.35); ARTERIAL BLOOD HCO3 3.5 mmol/L (20-24); ARTERIAL BLOOD PCO2 22.5 mmHg (35-45); ARTERIAL BLOOD PO2 141.9 mmHg (80-100); ARTERIAL BLOOD TOTAL CO2 4.2 mmol/L (23-27)
[2020-06-08 12:48] LABS: ARTERIAL BLOOD FIO2 ROOM AIR
[2020-06-08 12:49] LABS: ARTERIAL BLOOD PH 6.81 (7.35-7.45)
[2020-06-08] MEDS ORDERED: SODIUM BICARBONATE 8.4% INJ 50 MEQ/50 ML DISP.SYRIN IV ONE (13:03)
--- NOTE | 2020-06-08 13:27 | RADIOLOGY REPORT (SQ) ---
EXAM DESCRIPTION: CHEST SINGLE VIEW IMAGES COMPLETED DATE/TIME: 06/08/2020 1:03 pm REASON FOR STUDY: weakness COMPARISON: 11/05/2019. EXAM PARAMETERS: NUMBER OF VIEWS: One view. TECHNIQUE: Single frontal radiographic view of the chest acquired. RADIATION DOSE: NA LIMITATIONS: None. FINDINGS: LUNGS AND PLEURA: No opacities, masses or pneumothorax. Stable calcified pleural plaques. No pleural effusion. MEDIASTINUM AND HILAR STRUCTURES: No masses. Contour normal. HEART AND VASCULAR STRUCTURES: Heart normal in size. Normal vasculature. BONES: No acute findings. HARDWARE: Left axillary and upper extremity stent. OTHER: No other significant finding. IMPRESSION: NO ACUTE RADIOGRAPHIC FINDING IN THE CHEST. CHRONIC CHANGES INCLUDING CALCIFIED PLEURAL PLAQUES. TECHNICAL DOCUMENTATION: JOB ID: [id number] 2010 [employer]- All Rights Reserved Reading location - IP/workstation name: [email or web address]
[2020-06-08 14:00] LABS: ACETAMINOPHEN < 10 ug/mL (10-30); ALCOHOL < 10 mg/dL (NONE DETECTED); SALICYLATE < 1.0 mg/dL (2.0-20.0)
[2020-06-08] MEDS ORDERED: NORMAL SALINE 1000 ML 1,000 ML IV PRN (14:28)
--- NOTE | 2020-06-08 15:23 | RADIOLOGY REPORT (SQ) ---
EXAM DESCRIPTION: CT HEAD WITHOUT IMAGES COMPLETED DATE/TIME: 06/08/2020 3:13 pm REASON FOR STUDY: Altered mental status COMPARISON: None. TECHNIQUE: Axial images acquired through the brain without intravenous contrast. Images reviewed wi th bone, brain and subdural windows. Additional sagittal and coronal reconstructions were generated. Images stored on PACS. All CT scanners at this facility use dose modulation, iterative reconstruction, and/or weight based d osing when appropriate to reduce radiation dose to as low as reasonably achievable (ALARA). [facility]: Dose Right [facility]: CareDose [facility]: Dose Right [facility]: Teradose 4D [facility]: Smart [employer]tohum RADIATION DOSE: CT Rad equipment meets quality standard of care and radiation dose reduction techniq ues were employed. CTDIvol: 48.8 - 49.8 mGy. DLP: 1738 mGy-cm. mGy. LIMITATIONS: None. FINDINGS: VENTRICLES: Normal size and contour. CEREBRUM: No masses. No hemorrhage. No midline shift. No evidence for acute infarction. Normal gra y/white matter differentiation. No areas of low density in the white matter. CEREBELLUM: No masses. No hemorrhage. No alteration of density. No evidence for acute infarction. EXTRAAXIAL SPACES: No fluid collections. No masses. ORBITS AND GLOBE: No intra- or extraconal masses. Normal contour of globe without masses. CALVARIUM: No fracture. PARANASAL SINUSES: No fluid or mucosal thickening. SOFT TISSUES: No mass or hematoma. OTHER: No other significant finding. IMPRESSION: NORMAL BRAIN CT WITHOUT CONTRAST. EVIDENCE OF ACUTE STROKE: NO. COMMENT: Quality ID # 436: Final reports with documentation of one or more dose reduction techniques (e.g., Automated exposure control, adjustment of the mA and/or kV according to patient size, use of iterative reconstruction technique) TECHNICAL DOCUMENTATION: JOB ID: [id number] 2010 [employer]- All Rights Reserved Reading location - IP/workstation name: [email or web address]
[2020-06-08] MEDS ORDERED: VANCOMYCIN HCL 0 MG in DEXTROSE 5%-WATER 250 ML IV NR (15:30)
--- NOTE | 2020-06-08 15:36 | RADIOLOGY REPORT (SQ) ---
EXAM DESCRIPTION: CT ABD/PELVIS WITH IV ONLY IMAGES COMPLETED DATE/TIME: 06/08/2020 3:13 pm REASON FOR STUDY: abdominal and back pain COMPARISON: 03/04/2019. TECHNIQUE: CT scan of the abdomen and pelvis performed using helical scanning technique with dynamic intravenous contrast injection. No oral contrast. Images reviewed with lung, soft tissue, and bone windows. Reconstructed coronal and sagittal MPR images reviewed. Delayed images for evaluation of the urinary system also acquired. All images stored on PACS. All CT scanners at this facility use dose modulation, iterative reconstruction, and/or weight based d osing when appropriate to reduce radiation dose to as low as reasonably achievable (ALARA). [facility]: Dose Right [facility]: CareDose [facility]: Dose Right [facility]: Teradose 4D [facility]: [employer] CONTRAST TYPE AND DOSE: contrast/concentration: Isovue 300.00 mmol/ml; Total Contrast Delivered: 84. 0 ml; Total Saline Delivered: 45.0 ml RENAL FUNCTION: BUN 54 creatinine 13.8 (dialysis patient). RADIATION DOSE: CT Rad equipment meets quality standard of care and radiation dose reduction techniq ues were employed. CTDIvol: 16.7 - 18.8 mGy. DLP: 2086 mGy-cm.. LIMITATIONS: Motion artifact. There was contrast extravasation during injection and no contrast is visualized in the vascular system. FINDINGS: LOWER CHEST: Calcified pleural plaques. No nodules or infiltrates. LIVER: Normal size. No masses. No dilated ducts. SPLEEN: Normal size. No focal lesions. PANCREAS: No masses. No significant calcifications. No adjacent inflammation or peripancreatic fluid collections. Pancreatic duct not dilated. GALLBLADDER: Contrast present secondary to biliary excretion. No inflammatory changes to suggest chol ecystitis. ADRENAL GLANDS: No significant masses or asymmetry. RIGHT KIDNEY AND URETER: No solid masses. No significant calcifications. No hydronephrosis or hyd roureter. LEFT KIDNEY AND URETER: Surgically absent. AORTA AND VESSELS: No aneurysm. No dissection. Renal arteries, SMA, celiac without stenosis. RETROPERITONEUM: No retroperitoneal adenopathy, hemorrhage or masses. BOWEL AND PERITONEAL CAVITY: No masses or inflammatory changes. No free fluid or peritoneal masses. APPENDIX: Surgically absent. PELVIS: Peroneal dialysis catheter, distal end in the left lower quadrant. No mass. No free fluid. Normal bladder. ABDOMINAL WALL: No masses. No hernias. BONES: No significant or acute findings. OTHER: No other significant finding. IMPRESSION: CHRONIC CHANGES DESCRIBED. APPENDECTOMY AND LEFT NEPHRECTOMY. PERITONEAL DIALYSIS C ATHETER PRESENT. CALCIFIED PLEURAL PLAQUES. NO ACUTE FINDING IN THE ABDOMEN OR PELVIS. NOTE THAT N O VASCULAR CONTRAST IS VISUALIZED DUE TO CONTRAST EXTRAVASATION. TECHNICAL DOCUMENTATION: JOB ID: [id number] Quality ID # [id number]: Final reports with documentation of one or more dose reduction techniques (e.g., Au tomated exposure control, adjustment of the mA and/or kV according to patient size, use of iterative reconstruction technique) 2010 [employer]- All Rights Reserved Reading location - IP/workstation name: [email or web address]
--- NOTE | 2020-06-08 16:15 | ER Document Report ---
ED General - General Chief Complaint: General Weakness Stated Complaint: LOWER BACK PAIN Time Seen by Provider: 06/08/20 10:08 Primary Care Provider: BRAULIO HANCOCK MD [Primary Care Provider] - Follow up as needed Information source: Patient, Emergency Med Personnel, Outside Facility Records TRAVEL OUTSIDE OF THE [place] IN LAST 30 DAYS: No - HPI Notes: This patient was transported here from [facility] before receiving his dialysis run. He was initially seen by our advanced practice provider. Please see her note for details. He confirms that history and says that he just feels weak. He was quite agitated in the room when I interviewed him initially and could not sit still. He complains of some low back pain. He says he just feels weak all over. He says that he broke out in a cold sweat earlier. He denies any real abdominal pain to me. He is somewhat vague about how compliant he is with his dialysis schedule. He also states to me that he drives himself to dialysis all the time, but later it became evident that in fact his drives him most of the time but she has been ill recently and has not been able to. The patient is somewhat confused and is unable to provide much more history at this point. - Related Data Allergies/Adverse Reactions: No Known Allergies Allergy (Verified 02/12/20 15:47) Past Medical History - General Information source: Patient, [facility] Records - Social History Smoking Status: Unknown if Ever Smoked Family History: Reviewed & Not Pertinent - Medical History Medical History: Other Notes: Past medical history as documented in the electronic health record is reviewed. - Past Medical History Cardiac Medical History: Reports: Hx Hypercholesterolemia, Hx Hypertension - MEDS Denies: Hx Coronary Artery Disease, Hx Heart Attack Pulmonary Medical History: Denies: Hx Asthma, Hx Bronchitis, Hx COPD, Hx Pneumonia Neurological Medical History: Denies: Hx Cerebrovascular Accident, Hx Seizures Endocrine Medical History: Reports: Hx Diabetes Mellitus Type 2 Renal/ Medical History: Reports: Hx Renal Insufficiency. Denies: Hx Peritoneal Dialysis GI Medical History: Denies: Hx Hepatitis, Hx Hiatal Hernia, Hx Ulcer Musculoskeletal Medical History: Denies Hx Arthritis Infectious Medical History: Denies: Hx Hepatitis Past Surgical History: Reports: Hx Appendectomy, Hx Kidney (Renal Surgery) - kidney removed, Other - Nephrectomy. Denies: Hx Open Heart Surgery, Hx Pacemaker - Immunizations Hx Diphtheria, Pertussis, Tetanus Vaccination: Yes Hx Pneumococcal Vaccination: 06/04/17 Review of Systems - Review of Systems -: Yes ROS unobtainable due to patient's medical condition - Patient's mental status did not allow proper review of systems. Physical Exam - Vital signs Vitals: Pulse Resp BP Pulse Ox 103 H 24 H 188/74 H 100 06/08/20 10:05 06/08/20 10:05 06/08/20 10:06/08/20 10:05 - Notes Notes: General: Elderly male in moderate distress. Vital signs and nursing documentation are reviewed. HEENT: Normocephalic and atraumatic. Pupils are equally reactive to light. ENT exam is otherwise unremarkable. Neck: Supple no adenopathy. Chest: Fair air entry bilaterally without obvious rales rhonchi or wheezes. Heart: Tachycardic regular rate and rhythm no murmur. Abdomen: Nondistended, soft, mild diffuse nonspecific tenderness. No guarding. No rebound. No masses. 9 extremities: Without clubbing or edema. Skin: Patient is somewhat diaphoretic with cool moist skin. No rashes are noted. Neuro: Patient is alert. He is oriented to person. He does not follow directions well and has a hard time focusing on questions. He has no focal motor or sensory deficits. Course - Re-evaluation Re-evalutation: 06/08/20 16:13 The patient was obviously seriously ill at the time of presentation. Laboratory evaluation quickly revealed a severe metabolic acidosis. Case was discussed with both the hospitalist service and the manager web application. Because of the patient's very high lactate and severe acidosis I elected to give him a 500 mL bolus of normal saline but no more fluid at the initial assessment. After discussing the matter with Dr. Goetz from the manager web application service I also ordered an amp of bicarb and a CT of the abdomen and pelvis. The case was discussed with our on- call soda room operator who is familiar with the patient's history. She was able to arrange after hours dialysis for him here in the hospital. Once we were able to secure that service the manager web application accepted the patient for admission into the hospital. - Vital Signs Vital signs: Temp Pulse Resp BP Pulse Ox 103 H 40 H 144/59 H 98 06/08/20 10:06/08/20 15:18 06/08/20 15:18 06/08/20 15:18 - Laboratory Results Result Diagrams: 06/08/20 10:35 06/08/20 10:35 Laboratory Results Interpreted: 06/08/20 06/08/20 06/08/20 10:35 10:35 10:35 WBC 17.3 H RBC 3.67 L Hgb 11.4 L Hct 36.6 L MCV 100 H MCHC 31.2 L RDW 17.1 H PT Carbonic Acid ABG pH ABG pCO2 ABG pO2 ABG HCO3 ABG Total CO2 VBG pH VBG pCO2 VBG HCO3 Sodium 146.6 H Chloride 90 L Carbon Dioxide < 5 L* BUN 54 H Creatinine 13.81 H Est GFR ( Amer) 4 L Est GFR (MDRD) Non-Af 4 L Lactic Acid Direct Bilirubin 0.5 H Total Protein 8.5 H Albumin 5.4 H Lipase 1032.8 H Salicylates < 1.0 L Acetaminophen < 10 L 06/08/20 06/08/20 06/08/20 10:37 11:36 11:36 WBC RBC Hgb Hct MCV MCHC RDW PT 16.5 H Carbonic Acid ABG pH ABG pCO2 ABG pO2 ABG HCO3 ABG Total CO2 VBG pH 6.82 L* VBG pCO2 33.2 L VBG HCO3 5.3 L Sodium Chloride Carbon Dioxide BUN Creatinine Est GFR ( Amer) Est GFR (MDRD) Non-Af Lactic Acid 28.9 H Direct Bilirubin Total Protein Albumin Lipase Salicylates Acetaminophen 06/08/20 12:35 WBC RBC Hgb Hct MCV MCHC RDW PT Carbonic Acid 0.68 L ABG pH 6.81 L* ABG pCO2 22.5 L ABG pO2 141.9 H ABG HCO3 3.5 L ABG Total CO2 4.2 L VBG pH VBG pCO2 VBG HCO3 Sodium Chloride Carbon Dioxide BUN Creatinine Est GFR ( Amer) Est GFR (MDRD) Non-Af Lactic Acid Direct Bilirubin Total Protein Albumin Lipase Salicylates Acetaminophen Critical Laboratory Results Reviewed: Yes Attending or Supervising Physician who Reviewed Labs: HAYES GARCIA - Radiology Results Critical Radiology Results Reviewed: No Critical Results - EKG Interpretation by Co EKG shows normal: Sinus rhythm Rate: Tachycardia Discharge - Discharge Clinical Impression: Metabolic acidosis, End stage renal disease, Elevated lactic acid level Condition: Serious Disposition: ADMITTED INPATIENT Admitting Provider: Bishnu ([facility]) Unit Admitted: ICU Referrals: BRAULIO HANCOCK MD [Primary Care Provider] - Follow up as needed
[2020-06-08] MEDS ORDERED: LIDOCAINE 1% INJ-PF (10 MG/ML) 30 ML SDV ONE (16:25)
--- NOTE | 2020-06-08 16:37 | CRITICAL CARE ADMISSION REPORT ---
HPI Date:: 06/08/20 Time:: 14:27 Reason for ICU Reason:: Severe anion gap metabolic acidosis Admission Date/Time & PCP: Admission Date/Time: Primary Care Provider: BRAULIO HANCOCK MD HPI: This 74-year-old -[place] male end-stage renal disease patient is seen in the emergency department. He presented to [facility] emergency department with complaints of "feeling sick" and "back pain", which the patient admits her chronic problems. He does admit that he missed his last dialysis session. Apparently, he depends on his for a ride to hemodialysis; however, she has fallen ill and was unable to take him. At the time of clinical interview, the patient is hemodynamically stable. Afebrile. Respiratory rate 24; however, ABG on room air was 6.81/23/142. He does demonstrate some mild co nfusion but is awake, alert and oriented to time person place and situation. He denies fever or chills. He denies sick contacts. Initial laboratory evaluation was notable for a creatinine of 13.81. Lactate 28.9. Lipase 1032.8. History obtained from:: Patient - Diagnosis/Plan (1) High anion gap metabolic acidosis Is this a current diagnosis for this admission?: Yes Plan: * With elevated creatinine and elevated lactate (while hemodynamically stable), this patient needs urgent hemodialysis. * Case discussed with Dr. Stone. Hemodialysis planned for today. * Check serum alcohol, proBNP, Tylenol level, salicylate level. (2) End stage renal disease Is this a current diagnosis for this admission?: Yes Plan: * Hemodialysis per nephrology. (3) Uremia Is this a current diagnosis for this admission?: Yes (4) Accelerated hypertension Is this a current diagnosis for this admission?: Yes Plan: * Restart nifedipine ER 30 mg p.o. daily (5) Acute pancreatitis Qualifiers: Pancreatitis type: unspecified pancreatitis type Is this a current diagnosis for this admission?: Yes Plan: * CT abdomen without contrast. * Check triglyceride level. * Empirically, I will start Rocephin/Flagyl/vancomycin. (6) Elevated lactic acid level Is this a current diagnosis for this admission?: Yes Plan: * No obvious infectious focus. Blood cultures pending. * CT abdomen with IV contrast (with arrangements for hemodialysis immediately thereafter). (7) Diabetes mellitus type 2 in obese Is this a current diagnosis for this admission?: Yes Plan: * Sliding scale for now. * Home regimen: Tradjenta 5 mg p.o. daily, glimepiride 4 mg p.o. twice daily. Plan Summary: * Originally, I issued recommendations to the emergency department staff that the patient be transferred to a facility for higher level of care (in light of the fact that we typically only have hemodialysis services available on Mondays, Wednesdays and Fridays). This patient is at high risk for expe riencing cardiac arrest today, which happens to be a Sunday. However, Dr. Stone is indicated that she was able to make arrangements for hemodialysis to be performed today. Consequently, I have agreed to admit this patient to ICU. Past Medical History Cardiac Medical History: Reports: Hyperlipidema, Hypertension - MEDS Denies: Coronary Artery Disease, Myocardial Infarction Pulmonary Medical History: Denies: Asthma, Bronchitis, Chronic Obstructive Pulmonary Disease (COPD), Pneumonia Neurological Medical History: Denies: Seizures Endocrine Medical History: Reports: Diabetes Mellitus Type 2 GI Medical History: Denies: Hepatitis, Hiatal Hernia Musculoskeltal Medical History: Denies: Arthritis Hematology: Denies: Anemia, Sickle Cell Disease Past Surgical History Past Surgical History: Reports: Appendectomy, Other - Nephrectomy Denies: Pacemaker Social/Family History - Social History Smoking Status: Unknown if Ever Smoked Frequency of Alcohol Use: None Hx Recreational Drug Use: No Drugs: None Hx Prescription Drug Abuse: No - Medication/Allergies Home Medications: Glimepiride [Amaryl 4 mg Tablet] 4 mg PO BID 02/26/14 Rosuvastatin Calcium [Crestor 10 mg Tablet] 10 mg PO QHS 02/23/19 Furosemide [Lasix 20 mg Tablet] 20 mg PO DAILY 05/12/19 Linagliptin [Tradjenta] 5 mg PO DAILY 05/12/19 Nifedipine [Nifedipine ER] 30 mg PO DAILY 05/12/19 B Complex W-C No.20/Folic Acid [Renal Caps Softgel] 1 mg PO DAILY 06/08/20 Allergies/Adverse Reactions: No Known Allergies Allergy (Verified 02/12/20 15:47) Review of Systems Constitutional: ABSENT: chills, fever(s), headache(s), weight gain, weight loss Eyes: ABSENT: visual disturbances Ears: ABSENT: hearing changes Cardiovascular: ABSENT: chest pain, dyspnea on exertion, edema, orthropnea, palpitations Respiratory: ABSENT: cough, hemoptysis Gastrointestinal: PRESENT: abdominal pain. ABSENT: constipation, diarrhea, hematemesis, hematochezia, nausea, vomiting Genitourinary: PRESENT: other - ESRD patient on hemodialysis. ABSENT: dysuria, hematuria Musculoskeletal: PRESENT: back pain. ABSENT: joint swelling Integumentary: ABSENT: rash, wounds Neurological: ABSENT: abnormal gait, abnormal speech, confusion, dizziness, focal weakness, syncope Psychiatric: ABSENT: anxiety, depression, homidical ideation, suicidal ideation Hematologic/Lymphatic: ABSENT: easy bleeding, easy bruising Physical Exam Vital Signs: Temp Pulse Resp BP Pulse Ox 103 H 24 H 188/74 H 100 06/08/20 10:05 06/08/20 10:05 06/08/20 10:05 06/08/20 14:10 Intake & Output 06/07/20 06/08/20 06/09/20 06:59 06:59 06:59 Weight 85.8 kg Weight/Height Weight 85.8 kg Height 1.83 m General appearance: PRESENT: no acute distress, well-developed, well-nourished Head exam: PRESENT: atraumatic, normocephalic Eye exam: PRESENT: conjunctiva pink, EOMI, PERRLA. ABSENT: scleral icterus Ear exam: PRESENT: normal external ear exam Mouth exam: PRESENT: moist, tongue midline Neck exam: ABSENT: carotid bruit, JVD, lymphadenopathy, thyromegaly Respiratory exam: PRESENT: clear to auscultation rosi. ABSENT: rales, rhonchi, wheezes Cardiovascular exam: PRESENT: RRR. ABSENT: diastolic murmur, rubs, systolic murmur Pulses: PRESENT: normal dorsalis pedis pul GI/Abdominal exam: PRESENT: normal bowel sounds, soft. ABSENT: distended, guarding, mass, organolmegaly, rebound, tenderness Extremities exam: PRESENT: full ROM. ABSENT: calf tenderness, clubbing, pedal edema Musculoskeletal exam: PRESENT: normal inspection. ABSENT: deformity Neurological exam: PRESENT: alert, awake, oriented to person, oriented to place, oriented to time, oriented to situation, reflexes normal, CN II-XII grossly intact. ABSENT: motor sensory deficit Psychiatric exam: PRESENT: anxious. ABSENT: agitated Skin exam: PRESENT: dry, intact, warm. ABSENT: cyanosis, rash Laboratory/Radiographs Laboratory Results: 06/08/20 10:35 06/08/20 06/08/20 06/08/20 10:35 10:35 10:35 WBC 17.3 H RBC 3.67 L Hgb 11.4 L Hct 36.6 L MCV 100 H MCH 31.1 MCHC 31.2 L RDW 17.1 H Plt Count 240 Carbonic Acid HCO3/H2CO3 Ratio ABG pH ABG pCO2 ABG pO2 ABG HCO3 ABG O2 Saturation ABG Base Excess VBG pH VBG pCO2 VBG HCO3 VBG Base Excess Carboxyhemoglobin FiO2 Sodium 146.6 H Potassium 4.7 Chloride 90 L Carbon Dioxide < 5 L* Anion Gap Not Reportable BUN 54 H Creatinine 13.81 H Est GFR ( Amer) 4 L Glucose 104 Lactic Acid Calcium 10.1 Magnesium 2.2 Total Bilirubin 0.5 AST 35 Alkaline Phosphatase 93 Total Protein 8.5 H Albumin 5.4 H Lipase 1032.8 H 06/08/20 06/08/20 06/08/20 11:36 11:36 12:35 WBC RBC Hgb Hct MCV MCH MCHC RDW Plt Count Carbonic Acid 0.68 L HCO3/H2CO3 Ratio 5:1 ABG pH 6.81 L* ABG pCO2 22.5 L ABG pO2 141.9 H ABG HCO3 3.5 L ABG O2 Saturation 96.0 ABG Base Excess -30.0 VBG pH 6.82 L* VBG pCO2 33.2 L VBG HCO3 5.3 L VBG Base Excess -28.6 Carboxyhemoglobin FiO2 ROOM AIR Sodium Potassium Chloride Carbon Dioxide Anion Gap BUN Creatinine Est GFR ( Amer) Glucose Lactic Acid 28.9 H Calcium Magnesium Total Bilirubin AST Alkaline Phosphatase Total Protein Albumin Lipase 06/08/20 14:02 WBC RBC Hgb Hct MCV MCH MCHC RDW Plt Count Carbonic Acid HCO3/H2CO3 Ratio ABG pH ABG pCO2 ABG pO2 ABG HCO3 ABG O2 Saturation ABG Base Excess VBG pH VBG pCO2 VBG HCO3 VBG Base Excess Carboxyhemoglobin 1.0 FiO2 Sodium Potassium Chloride Carbon Dioxide Anion Gap BUN Creatinine Est GFR ( Amer) Glucose Lactic Acid Calcium Magnesium Total Bilirubin AST Alkaline Phosphatase Total Protein Albumin Lipase 06/08/20 10:37 Troponin I 0.017 Impressions: Lumbar Spine X-Ray 06/08/20 10:19 IMPRESSION: Grade 1 anterolisthesis of L5 on S1 with facet arthropathy at the lower 3 disc space levels. Chest X-Ray 06/08/20 11:04 IMPRESSION: NO ACUTE RADIOGRAPHIC FINDING IN THE CHEST. CHRONIC CHANGES INCLUDING CALCIFIED PLEURAL PLAQUES. All labs, radiographs, diagnostic studies and EKGs were personally reviewed: Yes In addition, reports of radiographic and diagnostic studies were read: Yes Critical Time Critical Time (minutes): 60 -: The care of a critically ill patient is dynamic. This note represents a static moment in the admission process. Orders and treatments may be given simultaneously and urgently, and time is not membership sales representative of the treatment process. This patient requires Critical Care secondary to life threatening organ or limb dysfunction. Without Critical Care services, the patient is at risk for increased mortality and morbidity.
[2020-06-08] MEDS ORDERED: VANCOMYCIN HCL 1,500 MG in DEXTROSE 5%-WATER 250 ML IV ONE (17:00)
[2020-06-08 17:01] LABS: HEMATOCRIT 35.9 % (37.9-51.0); HEMOGLOBIN 10.8 g/dL (13.5-17.0); MEAN CORPUSCULAR HEMOGLOBIN 31.7 pg (27.0-33.4); MEAN CORPUSCULAR HGB CONC 30.2 g/dL (32.0-36.0); PLATELET COUNT 252 10^3/uL (150-450); RED BLOOD COUNT 3.42 10^6/uL (4.35-5.55); WHITE BLOOD COUNT 21.2 10^3/uL (4.0-10.5)
[2020-06-08 17:19] LABS: MEAN CORPUSCULAR VOLUME 105 fl (80-97)
[2020-06-08] MEDS ORDERED: RINGERS SOLUTION,LACTATED 1,000 ML IV ONE (17:21)
[2020-06-08 17:27] LABS: ABSOLUTE LYMPHOCYTES# (MANUAL) 2.5 10^3/uL (0.5-4.7); ABSOLUTE MONOCYTES # (MANUAL) 2.1 10^3/uL (0.1-1.4); BASOPHILS % (MANUAL) 1 % (0-2); EOSINOPHILS % (MANUAL) 0 % (0-6); LYMPHOCYTES % (MANUAL) 12 % (13-45); MONOCYTES % (MANUAL) 10 % (3-13); SEGMENTED NEUTROPHILS % (MAN) 77 % (42-78); TOTAL CELLS COUNTED 100
[2020-06-08 17:30] LABS: ANISOCYTOSIS 1+; BURR CELLS SLIGHT; OVALOCYTES SLIGHT; PLATELET COMMENT ADEQUATE; POIKILOCYTOSIS SLIGHT; POLYCHROMASIA SLIGHT
[2020-06-08] MEDS ORDERED: NOREPINEPHRINE BITARTRATE INJ/PF 4 MG/4 ML SDV IV ONE (17:40)
[2020-06-08] MEDS ORDERED: SODIUM BICARBONATE 8.4% INJ 50 MEQ/50 ML DISP.SYRIN ONE ×2 (17:52→22:51)
[2020-06-08] MEDS: PANTOPRAZOLE SODIUM 40 MG VIAL IV SCH (18:00)
--- NOTE | 2020-06-08 19:15 | RADIOLOGY REPORT (SQ) ---
EXAM DESCRIPTION: CHEST SINGLE VIEW IMAGES COMPLETED DATE/TIME: 06/08/2020 6:55 pm REASON FOR STUDY: central line placement COMPARISON: None. EXAM PARAMETERS: NUMBER OF VIEWS: One view. TECHNIQUE: Single frontal radiographic view of the chest acquired. RADIATION DOSE: NA LIMITATIONS: None. FINDINGS: LUNGS AND PLEURA: No opacities, masses or pneumothorax. No pleural effusion. MEDIASTINUM AND HILAR STRUCTURES: No masses. Contour normal. HEART AND VASCULAR STRUCTURES: Heart normal in size. Normal vasculature. BONES: No acute findings. HARDWARE: Right subclavian catheter has its tip in the left subclavian. Left axillary/brachial stent . OTHER: No other significant finding. IMPRESSION: Right subclavian catheter with the tip in the left subclavian. No pneumothorax. TECHNICAL DOCUMENTATION: JOB ID: [id number] 2010 [employer]- All Rights Reserved Reading location - IP/workstation name: [email or web address]
--- NOTE | 2020-06-08 19:16 | Operative Report ---
Bedside Procedure - History of Present Illness History of Present Illness: JACOB KAHN JR is a 74 year old male Indication for Procedure: Shock Date: 06/08/20 Provider: AUBREY GLORIA - Central Line Right Subclavian Consent obtained: Yes Central line pre-insertion: Sterile PPE donned, Chloraprep applied, Sterile drapes applied Central line lumen type: Triple Anesthetic type: 1% Lidocaine Ultrasound guided: No CM at insertion site: 19 Line secured with sutures: Yes Central line post-insertion: Blood return from lumens, Biopatch applied, Sutured, Sterile dressing applied Number of attempts: 1 Complications: Yes - malpositioned CVC Notes: 06/08/20 19:15 We will perform blood gas analysis from blood obtained from the distal part of the central venous catheter. If the blood is compatible with venous blood, it will be okay to use the central venous catheter for central access. In the event that it proves to be arterial blood, the CVC will be removed.
[2020-06-08 20:04] LABS: ARTERIAL BLOOD BASE EXCESS -15.6 mmol/L; ARTERIAL BLOOD H2CO3 1.02 mmol/L (1.05-1.35); ARTERIAL BLOOD O2 SATURATION 97.9 % (94-98); ARTERIAL BLOOD PO2 132.5 mmHg (80-100)
[2020-06-08 20:05] LABS: ARTERIAL BLOOD FIO2 10L
[2020-06-08 20:06] LABS: ARTERIAL BLOOD PH 7.16 (7.35-7.45)
--- NOTE | 2020-06-08 21:40 | PDOC CONSULTATION ---
Consultation Consult Date: 06/08/20 Provider Consulted: KEN ROLAND Consult reason:: Severe Metabolic Acidosis, ESRD History of Present Illness Admission Date/PCP: 06/08/20 16:14 BRAULIO HANCOCK MD History of Present Illness: JACOB KAHN JR is a 74 year old -[place] gentleman known to me with history of ESRD on maintenance hemodialysis on TTHS compliant with treatment and medications, history of urothelial cancer status post left nephroureterectomy in 2019, hypertension, diabetes mellitus type 2, history of nephrolithiasis, and anemia who was brought to the ED today from [facility], [place] due to severe hypoglycemia. History is obtained from [facility] staff and [facility] ED records since when I saw the patient patient was basically unresponsive and could not give any history at all. The patient drove himself to [facility], [place] and was noted to be very weak and tired so to [facility] staff check his blood sugar which initially registered as very low. He was given some oral juice and oral glucose and repeat blood sugar was 39. Patient vomited and at that point EMS was called. Patient was started on D10 and blood sugar went up to 100+. Patient also complained of low back pain. Since patient is not clinically well patient was brought to the ED. Initial evaluation in the ED showed very low bicarb of less than 5, pH of 6.81, creatinine of 13.81, lipase of 8032.8 and WBC count of 17.3. His blood glucose was 104. Initial blood pressure was 188/74. Imaging studies including chest x- ray and CT of the head were unremarkable. Patient was evaluated by our electronic semiconductor processor Dr. Goetz who recommended to the patient needs emergency dialysis otherwise he needed to be transferred. At that point Dr. Bolden, the ED provider called me with emergency hemodialysis. I then subsequently arrange an emergency dialysis to be done in the ED. I am currently seeing the patient during initiation of hemodialysis. He is currently unresponsive. Blood pressure when I came was 79/47 and has gone further to 72/35. We have turned off the ultrafiltration and started to give the patient boluses of IV fluids but he remained to be hypotensive. I then spoke to Dr. Trejo's, ED provider to request that patient be started on some vasopressor while on dialysis. Unfortunately the patient does not have a good IV access. They have initially consulted our surgeon on-call, Dr. Washington who is currently in a procedure to the ED nurse was trying to get some peripheral IV line. Dr. Bolden is also informed her electronic semiconductor processor, Dr. Goetz about the situation. Organ to continue to give the patient IV fluid boluses to at least maintain or improve the blood pressure. Patient remained to be unresponsive while I was at bedside. Past Medical History Cardiac Medical History: Reports: Hyperlipidemia, Hypertension-primary Endocrine Medical History: Reports: Diabetes Mellitus Type 2 Complications of Diabetes: Reports: Nephropathy Renal/ Medical History: Reports: Benign Prostatic Hyperplasia, End Stage Renal Disease, Nephrolithiasis, Proteinuria Malignancy Medical History: Reports: Other - Left urothelial cancer Hematology Medical History: Reports Anemia of Chronic Kidney Disease, Reports Iron Deficiency Anemia Past Surgical History Past Surgical History: Reports: Appendectomy, Nephrectomy - Left nephroureterectomy for urothelial cancer in 2019 Social History Information Source: Dr. Elizabeth, [facility] Records Lives with: Spouse/Significant other Smoking Status: Never Smoker Electronic Cigarette use?: No Frequency of Alcohol Use: None Hx Recreational Drug Use: No Drugs: None Hx Prescription Drug Abuse: No Family History Family History: DM - Father and mother, End Stage Renal Disease - Mother was on dialysis, Hypertension - Father and mother, Malignancy - Prostate cancer in his father Parental Family History Reviewed: Yes Children Family History Reviewed: Yes Sibling(s) Family History Reviewed.: Yes Medication/Allergy Home Medications: Glimepiride [Amaryl 4 mg Tablet] 4 mg PO BID 02/26/14 Rosuvastatin Calcium [Crestor 10 mg Tablet] 10 mg PO QHS 02/23/19 Furosemide [Lasix 20 mg Tablet] 20 mg PO DAILY 05/12/19 Linagliptin [Tradjenta] 5 mg PO DAILY 05/12/19 Nifedipine [Nifedipine ER] 30 mg PO DAILY 05/12/19 B Complex W-C No.20/Folic Acid [Renal Caps Softgel] 1 mg PO DAILY 06/08/20 Allergies/Adverse Reactions: No Known Allergies Allergy (Verified 02/12/20 15:47) Review of Systems ROS unobtainable: Due to mental status Physical Exam Vital Signs: Temp Pulse Resp BP Pulse Ox 103 H 40 H 144/59 H 98 06/08/20 10:05 06/08/20 15:18 06/08/20 15:18 06/08/20 15:18 Intake & Output 06/07/20 06/08/20 06/09/20 06:59 06:59 06:59 Intake Total 500 Balance 500 Weight 85.8 kg Vitals during dialysis while I was at bedside: Blood pressure of 74/47, heart rate of 102, respiration of 37, blood flow rate of 400 mL/min and dialysate flow rate of 800 mL/min. Exam: General appearance: Unresponsive, fairly developed and fairly nourished Head exam: PRESENT: atraumatic, normocephalic Eye exam: PRESENT: Eyes closed Mouth exam: PRESENT: Unable to examine at this time Neck exam: ABSENT: carotid bruit, JVD, lymphadenopathy, thyromegaly Respiratory exam: PRESENT: Diminished to auscultation bilaterally. ABSENT: rales, rhonchi, stridor, wheezes Cardiovascular exam: PRESENT: RRR, +S1, +S2. Tachycardic ABSENT: systolic murmur Pulses: PRESENT: normal radial pulses, normal dorsalis pedis pulses GI/Abdominal exam: PRESENT: normal bowel sounds, soft. ABSENT: guarding, mass, tenderness Rectal exam: Deferred Extremities exam: ABSENT: calf tenderness, pedal edema Musculoskeletal: ABSENT: deformity Neurological exam: PRESENT: Unresponsive Psychiatric exam: Unable to assess at this time Skin exam: PRESENT: intact, dry, warm. ABSENT: rash Results Laboratory Results: 06/08/20 10:35 06/08/20 06/08/20 06/08/20 10:35 10:35 10:35 WBC 17.3 H RBC 3.67 L Hgb 11.4 L Hct 36.6 L MCV 100 H MCH 31.1 MCHC 31.2 L RDW 17.1 H Plt Count 240 Seg Neutrophils % Carbonic Acid HCO3/H2CO3 Ratio ABG pH ABG pCO2 ABG pO2 ABG HCO3 ABG O2 Saturation ABG Base Excess VBG pH VBG pCO2 VBG HCO3 VBG Base Excess Carboxyhemoglobin FiO2 Sodium 146.6 H Potassium 4.7 Chloride 90 L Carbon Dioxide < 5 L* Anion Gap Not Reportable BUN 54 H Creatinine 13.81 H Est GFR ( Amer) 4 L Glucose 104 Lactic Acid Calcium 10.1 Magnesium 2.2 Total Bilirubin 0.5 AST 35 Alkaline Phosphatase 93 Total Protein 8.5 H Albumin 5.4 H Triglycerides Lipase 1032.8 H 06/08/20 06/08/20 06/08/20 10:35 11:36 11:36 WBC RBC Hgb Hct MCV MCH MCHC RDW Plt Count Seg Neutrophils % Carbonic Acid HCO3/H2CO3 Ratio ABG pH ABG pCO2 ABG pO2 ABG HCO3 ABG O2 Saturation ABG Base Excess VBG pH 6.82 L* VBG pCO2 33.2 L VBG HCO3 5.3 L VBG Base Excess -28.6 Carboxyhemoglobin FiO2 Sodium Potassium Chloride Carbon Dioxide Anion Gap BUN Creatinine Est GFR ( Amer) Glucose Lactic Acid 28.9 H Calcium Magnesium Total Bilirubin AST Alkaline Phosphatase Total Protein Albumin Triglycerides 140 Lipase 06/08/20 06/08/20 06/08/20 12:35 14:02 14:02 WBC Cancelled RBC Cancelled Hgb Cancelled Hct Cancelled MCV Cancelled MCH Cancelled MCHC Cancelled RDW Cancelled Plt Count Cancelled Seg Neutrophils % Cancelled Carbonic Acid 0.68 L HCO3/H2CO3 Ratio 5:1 ABG pH 6.81 L* ABG pCO2 22.5 L ABG pO2 141.9 H ABG HCO3 3.5 L ABG O2 Saturation 96.0 ABG Base Excess -30.0 VBG pH VBG pCO2 VBG HCO3 VBG Base Excess Carboxyhemoglobin 1.0 FiO2 ROOM AIR Sodium Potassium Chloride Carbon Dioxide Anion Gap BUN Creatinine Est GFR ( Amer) Glucose Lactic Acid Calcium Magnesium Total Bilirubin AST Alkaline Phosphatase Total Protein Albumin Triglycerides Lipase 06/08/20 10:37 Troponin I 0.017 Impressions: Lumbar Spine X-Ray 06/08/20 10:19 IMPRESSION: Grade 1 anterolisthesis of L5 on S1 with facet arthropathy at the lower 3 disc space levels. Chest X-Ray 06/08/20 11:04 IMPRESSION: NO ACUTE RADIOGRAPHIC FINDING IN THE CHEST. CHRONIC CHANGES INCLUDING CALCIFIED PLEURAL PLAQUES. Head CT 06/08/20 11:22 IMPRESSION: NORMAL BRAIN CT WITHOUT CONTRAST. EVIDENCE OF ACUTE STROKE: NO. Abdomen/Pelvis CT 06/08/20 13:04 IMPRESSION: CHRONIC CHANGES DESCRIBED. APPENDECTOMY AND LEFT NEPHRECTOMY. PERITONEAL DIALYSIS CATHETER PRESENT. CALCIFIED PLEURAL PLAQUES. NO ACUTE FINDING IN THE ABDOMEN OR PELVIS. NOTE THAT NO VASCULAR CONTRAST IS VISUALIZED DUE TO CONTRAST EXTRAVASATION. Assessment & Plan - Diagnosis (1) Metabolic acidosis Is this a current diagnosis for this admission?: Yes Plan: Severe with initial bicarbonate of less than 5 and pH of 6.81. This could be multifactorial secondary to uremia/ESRD, impending sepsis with elevated lactic acid and acute pancreatitis. I arrange for emergency hemodialysis today. We will do dialysis today for 2.5 hours, using the patient's left arm AV fistula, with 2 potassium bath, blood flow rate of 400-450 mL per minute, dialysate flow rate of 800 mL per minute, ultrafiltration none due to blood pressure, no heparin and no Procrit. Patient is very closely monitored during dialysis treatment with therapy adjusted accordingly. I have been in constant communication with her dialysis nurse throughout dialysis treatment. I will plan to do dialysis again tomorrow morning. (2) Elevated lactic acid level Is this a current diagnosis for this admission?: Yes Plan: Associated with leukocytosis, likely due to sepsis. (3) Uremia Is this a current diagnosis for this admission?: Yes Plan: Patient is very compliant with his hemodialysis treatment and has not missed treatment. This may be precipitated by concomitant acute illness. 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 He was also being planned to switch to peritoneal dialysis, thus currently has PD catheter in place. We will support with hemodialysis during this hospitalization. (5) Hypertension Is this a current diagnosis for this admission?: Yes Plan: Patient initially presented with hypertension but during dialysis treatment became hypotensive requiring some vasopressor and IV fluid boluses. (6) Acute pancreatitis Qualifiers: Pancreatitis type: unspecified pancreatitis type Is this a current diagnosis for this admission?: Yes Plan: Initial lipase is 1033. Initial noncontrast abdominal CT did not show any abnormalities around the pancreas though. Contrast abdominal CT was planned but unfortunately due to IV access the contrast has extravasated. Management per electronic semiconductor processor. (7) Anemia in chronic kidney disease (CKD) Is this a current diagnosis for this admission?: Yes Plan: Does not require Retacrit at this time. (8) Diabetes mellitus type 2 in nonobese Is this a current diagnosis for this admission?: Yes Plan: Was initially hypoglycemic and is currently improved. - Notes Notes: Thank you very much for this consultation. Discussed with Dr. Olsen ED and Dr. Goetz, electronic semiconductor processor.
--- NOTE | 2020-06-08 21:50 | RADIOLOGY REPORT (SQ) ---
EXAM DESCRIPTION: XR CHEST 1 VIEW 9:00 PM. COMPLETED DATE/TME: 06/08/2020 21:16 CLINICAL HISTORY: 74 years, Male, hypoxia COMPARISON: Film today at 6:[address] chest 03/04/2019. TECHNIQUE: Supine portable chest x-ray FINDINGS: Mild cardiomegaly. No suspicious mediastinal widening. Right central line removed. Chronic left pleural changes including calcifications confirmed on previous CT. No acute lung or pleural disease.
[2020-06-08] MEDS ORDERED: DEXTROSE 5%-WATER 1000 ML 1,000 ML with SODIUM BICARBONATE 150 MEQ IV PRN ×2 (21:51)
[2020-06-08] MEDS: CEFTRIAXONE 1 GM/D5W RTU 1 GM/50 ML RTUPB IV SCH (22:01)
[2020-06-09] MEDS: NIFEDIPINE 30 MG TAB.ER.24 PO SCH ×2 (00:42→09:56)
[2020-06-09] MEDS ORDERED: NOREPINEPHRINE BITARTRATE INJ/PF 4 MG/4 ML SDV IV ONE ×2 (00:44→06:01)
--- NOTE | 2020-06-09 00:44 | EKG REPORT ---
SEVERITY:- ABNORMAL ECG - SINUS TACHYCARDIA LAD, CONSIDER LEFT ANTERIOR FASCICULAR BLOCK MINIMAL ST DEPRESSION, LATERAL LEADS BORDERLINE PROLONGED QT INTERVAL : Confirmed by: Sandro Horta 09-Jun-2020 00:43:26
[2020-06-09] MEDS ORDERED: DEXTROSE 5%-WATER 250 ML with NOREPINEPHRINE BITARTRATE 4 MG IV PRN ×4 (01:13→09:47)
[2020-06-09] MEDS ORDERED: NORMAL SALINE 1000 ML 1,000 ML IV PRN (05:00)
[2020-06-09 05:39] LABS: ARTERIAL BLOOD BASE EXCESS -7.9 mmol/L; ARTERIAL BLOOD H2CO3 0.98 mmol/L (1.05-1.35); ARTERIAL BLOOD HCO3 16.9 mmol/L (20-24); ARTERIAL BLOOD O2 SATURATION 97.3 % (94-98); ARTERIAL BLOOD PCO2 32.4 mmHg (35-45); ARTERIAL BLOOD PH 7.34 (7.35-7.45); ARTERIAL BLOOD PO2 99.5 mmHg (80-100); ARTERIAL BLOOD TOTAL CO2 17.9 mmol/L (23-27)
[2020-06-09 05:41] LABS: ARTERIAL BLOOD FIO2 40%
[2020-06-09] MEDS: METRONIDAZOLE 500 MG/NS RTU 500 MG/100 ML RTUPB IV SCH ×6 (05:44→23:04)
[2020-06-09] MEDS: HEPARIN SOD (PORCINE) 5,000 UNIT/ML 1 ML VIAL SUBCUT SCH ×4 (05:55→23:04)
[2020-06-09 08:55] LABS: BLOOD UREA NITROGEN 56 mg/dL (7-20); CALCIUM 7.2 mg/dL (8.4-10.2); GLUCOSE 291 mg/dL (75-110); PHOSPHORUS 5.4 mg/dL (2.5-4.5)
[2020-06-09 09:00] LABS: CHLORIDE 82 mmol/L (98-107)
[2020-06-09 09:12] LABS: ANION GAP 31 (5-19); CARBON DIOXIDE 18 mmol/L (22-30); POTASSIUM 7.9 mmol/L (3.6-5.0)
[2020-06-09 09:35] LABS: TOTAL CELLS COUNTED % (AUTO) 100 %
[2020-06-09 09:46] LABS: ABSOLUTE LYMPHOCYTES (AUTO) 0.7 10^3/uL (0.5-4.7); ABSOLUTE MONOCYTES (AUTO) 1.5 10^3/uL (0.1-1.4); ABSOLUTE NEUT (AUTO) 9.3 10^3/uL (1.7-8.2); BASOPHILS % (AUTO) 0.3 % (0-2); HEMATOCRIT 30.7 % (37.9-51.0); HEMOGLOBIN 10.3 g/dL (13.5-17.0); LYMPHOCYTES % (AUTO) 5.9 % (13-45); MEAN CORPUSCULAR HEMOGLOBIN 31.8 pg (27.0-33.4); MEAN CORPUSCULAR HGB CONC 33.4 g/dL (32.0-36.0); MONOCYTES % (AUTO) 12.8 % (3-13); PLATELET COUNT 165 10^3/uL (150-450); RED BLOOD COUNT 3.22 10^6/uL (4.35-5.55); RED CELL DISTRIBUTION WIDTH 16.7 % (11.5-14.0); WHITE BLOOD COUNT 11.5 10^3/uL (4.0-10.5)
[2020-06-09 09:47] LABS: MEAN CORPUSCULAR VOLUME 95 fl (80-97)
[2020-06-09] MEDS: PANTOPRAZOLE SODIUM 40 MG VIAL IV SCH (11:42)
--- NOTE | 2020-06-09 13:01 | PDOC CRITICAL CARE PROG REPORT ---
General Date:: 06/09/20 ICU Day:: 2 Hospital Day:: 2 Resuscitation Status: Full Code Events in the past 12 to 24 Hours:: This 74-year-old -[place] male with end-stage renal disease was admitted to [facility] on 06/08/2020. He presented after having missed 1 dialysis session. He was found to be profoundly acidemic with an elevated anion gap. His creatinine was 13.8. His lactate was 28.9. Lipase 1032.8. He initially presented with accelerated hypertension but became hypotensive, requiring norepinephrine for blood pressure support. He was provided emergency dialysis. 06/09: Awake, alert. Conversant. ABG pH this a.m. 7.34/33/100. Off norepinephrine. Dialysis again this morning. Currently on room air, SPO2 97%. Review of systems relevant to events:: Neurologic: Confusion/altered mental status Gastrointestinal: Abdominal pain Musculoskeletal: Back pain (chronic) Renal: ESRD, severe anion gap metabolic acidosis, lactic acidosis Reason for ICU Addmission:: Severe anion gap metabolic acidosis - Medications: Medications reviewed and adjusted accordingly: Yes Physical Exam Vital Signs: Temp Pulse Resp BP Pulse Ox 98.8 F 65 22 H 155/49 H 100 06/09/20 10:00 06/09/20 10:00 06/09/20 08:49 06/09/20 10:00 06/09/20 08:48 Intake & Output 06/08/20 06/09/20 06/10/20 06:59 06:59 06:59 Intake Total 2350 122 Output Total 395 Balance 1955 122 Weight 87.8 kg Weight/Height Weight 87.8 kg Height 1.83 m General appearance: PRESENT: no acute distress, well-developed, well-nourished Head exam: PRESENT: atraumatic, normocephalic Eye exam: PRESENT: conjunctiva pink, EOMI, PERRLA. ABSENT: scleral icterus Neck exam: ABSENT: carotid bruit, JVD, lymphadenopathy, thyromegaly Respiratory exam: PRESENT: clear to auscultation rosi. ABSENT: rales, rhonchi, wheezes Cardiovascular exam: PRESENT: RRR. ABSENT: diastolic murmur, rubs, systolic murmur Pulses: PRESENT: normal dorsalis pedis pul Vascular exam: PRESENT: other - Left upper arm AV fistula GI/Abdominal exam: PRESENT: normal bowel sounds, soft. ABSENT: distended, guarding, mass, organolmegaly, rebound, tenderness Extremities exam: PRESENT: full ROM. ABSENT: calf tenderness, clubbing, pedal edema Musculoskeletal exam: PRESENT: normal inspection. ABSENT: deformity Neurological exam: PRESENT: alert, awake, oriented to person, oriented to place, oriented to time, oriented to situation, CN II-XII grossly intact. ABSENT: motor sensory deficit Psychiatric exam: ABSENT: agitated, anxious Laboratory/Radiographs Laboratory Results: 06/09/20 08:17 06/09/20 09:25 06/08/20 06/08/20 06/08/20 10:35 11:36 12:35 WBC RBC Hgb Hct MCV MCH MCHC RDW Plt Count Seg Neutrophils % Carbonic Acid 0.68 L HCO3/H2CO3 Ratio 5:1 ABG pH 6.81 L* ABG pCO2 22.5 L ABG pO2 141.9 H ABG HCO3 3.5 L ABG O2 Saturation 96.0 ABG Base Excess -30.0 Carboxyhemoglobin FiO2 ROOM AIR Sodium Potassium Chloride Carbon Dioxide Anion Gap BUN Creatinine Est GFR ( Amer) Est GFR (Non-Af Amer) Glucose Lactic Acid 28.9 H Calcium Phosphorus Magnesium Triglycerides 140 06/08/20 06/08/20 06/08/20 14:02 14:02 14:02 WBC Cancelled RBC Cancelled Hgb Cancelled Hct Cancelled MCV Cancelled MCH Cancelled MCHC Cancelled RDW Cancelled Plt Count Cancelled Seg Neutrophils % Cancelled Carbonic Acid HCO3/H2CO3 Ratio ABG pH ABG pCO2 ABG pO2 ABG HCO3 ABG O2 Saturation ABG Base Excess Carboxyhemoglobin 1.0 FiO2 Sodium Potassium Chloride Carbon Dioxide Anion Gap BUN Creatinine Est GFR ( Amer) Est GFR (Non-Af Amer) Glucose Lactic Acid 32.1 H Calcium Phosphorus Magnesium Triglycerides 06/08/20 06/08/20 06/08/20 16:40 16:40 19:45 WBC 21.2 H RBC 3.42 L Hgb 10.8 L Hct 35.9 L MCV 105 H D MCH 31.7 MCHC 30.2 L RDW 17.0 H Plt Count 252 Seg Neutrophils % Not Reportable Carbonic Acid 1.02 L HCO3/H2CO3 Ratio 11:1 ABG pH 7.16 L* ABG pCO2 34.0 L ABG pO2 132.5 H ABG HCO3 12.0 L ABG O2 Saturation 97.9 ABG Base Excess -15.6 Carboxyhemoglobin FiO2 10L Sodium Potassium Chloride Carbon Dioxide Anion Gap BUN Creatinine Est GFR ( Amer) Est GFR (Non-Af Amer) Glucose Lactic Acid 33.1 H Calcium Phosphorus Magnesium Triglycerides 06/09/20 06/09/20 06/09/20 03:11 04:50 05:50 WBC Cancelled RBC Cancelled Hgb Cancelled Hct Cancelled MCV Cancelled MCH Cancelled MCHC Cancelled RDW Cancelled Plt Count Cancelled Seg Neutrophils % Cancelled Carbonic Acid Cancelled 0.98 L HCO3/H2CO3 Ratio Cancelled 17:1 ABG pH Cancelled 7.34 L ABG pCO2 Cancelled 32.4 L ABG pO2 Cancelled 99.5 ABG HCO3 Cancelled 16.9 L ABG O2 Saturation Cancelled 97.3 ABG Base Excess Cancelled -7.9 Carboxyhemoglobin FiO2 Cancelled 40% Sodium Potassium Chloride Carbon Dioxide Anion Gap BUN Creatinine Est GFR ( Amer) Est GFR (Non-Af Amer) Glucose Lactic Acid Calcium Phosphorus Magnesium Triglycerides 06/09/20 06/09/20 06/09/20 05:50 05:50 05:50 WBC RBC Hgb Hct MCV MCH MCHC RDW Plt Count Seg Neutrophils % Carbonic Acid HCO3/H2CO3 Ratio ABG pH ABG pCO2 ABG pO2 ABG HCO3 ABG O2 Saturation ABG Base Excess Carboxyhemoglobin FiO2 Sodium Cancelled Cancelled Potassium Cancelled Cancelled Chloride Cancelled Cancelled Carbon Dioxide Cancelled Cancelled Anion Gap Cancelled Cancelled BUN Cancelled Cancelled Creatinine Cancelled Cancelled Est GFR ( Amer) Cancelled Cancelled Est GFR (Non-Af Amer) Cancelled Cancelled Glucose Cancelled Cancelled Lactic Acid Cancelled Calcium Cancelled Cancelled Phosphorus Cancelled Magnesium Cancelled Triglycerides 06/09/20 06/09/20 06/09/20 08:17 08:17 08:17 WBC 11.5 H RBC 3.22 L Hgb 10.3 L Hct 30.7 L MCV 95 D MCH 31.8 MCHC 33.4 RDW 16.7 H Plt Count 165 Seg Neutrophils % 81.0 H Carbonic Acid HCO3/H2CO3 Ratio ABG pH ABG pCO2 ABG pO2 ABG HCO3 ABG O2 Saturation ABG Base Excess Carboxyhemoglobin FiO2 Sodium 131.1 L Potassium 7.9 H* D Chloride 82 L Carbon Dioxide 18 L D Anion Gap 31 H BUN 56 H Creatinine 9.35 H Est GFR ( Amer) 7 L Est GFR (Non-Af Amer) Glucose 291 H Lactic Acid 9.0 H Calcium 7.2 L Phosphorus 5.4 H Magnesium 1.5 L Triglycerides 06/09/20 09:25 WBC RBC Hgb Hct MCV MCH MCHC RDW Plt Count Seg Neutrophils % Carbonic Acid HCO3/H2CO3 Ratio ABG pH ABG pCO2 ABG pO2 ABG HCO3 ABG O2 Saturation ABG Base Excess Carboxyhemoglobin FiO2 Sodium Potassium 5.8 H D Chloride Carbon Dioxide Anion Gap BUN Creatinine Est GFR ( Amer) Est GFR (Non-Af Amer) Glucose Lactic Acid Calcium Phosphorus Magnesium Triglycerides 06/08/20 06/09/20 06/09/20 10:37 05:50 08:17 Troponin I 0.017 NT-Pro-B Natriuret Pep Cancelled 6930 H Impressions: Lumbar Spine X-Ray 06/08/20 10:19 IMPRESSION: Grade 1 anterolisthesis of L5 on S1 with facet arthropathy at the lower 3 disc space levels. Chest X-Ray 06/08/20 11:04 IMPRESSION: NO ACUTE RADIOGRAPHIC FINDING IN THE CHEST. CHRONIC CHANGES INCLUDING CALCIFIED PLEURAL PLAQUES. Head CT 06/08/20 11:22 IMPRESSION: NORMAL BRAIN CT WITHOUT CONTRAST. EVIDENCE OF ACUTE STROKE: NO. Abdomen/Pelvis CT 06/08/20 13:04 IMPRESSION: CHRONIC CHANGES DESCRIBED. APPENDECTOMY AND LEFT NEPHRECTOMY. PERITONEAL DIALYSIS CATHETER PRESENT. CALCIFIED PLEURAL PLAQUES. NO ACUTE FINDING IN THE ABDOMEN OR PELVIS. NOTE THAT NO VASCULAR CONTRAST IS VISUALIZED DUE TO CONTRAST EXTRAVASATION. All labs, radiographs, diagnostic studies and EKGs were personally reviewed: Yes In addition, reports of radiographic and diagnostic studies were read: Yes Assessment and Plan - Diagnosis (1) High anion gap metabolic acidosis Is this a current diagnosis for this admission?: Yes (2) End stage renal disease Is this a current diagnosis for this admission?: Yes Plan: * Hemodialysis per nephrology. (3) Hypomagnesemia Is this a current diagnosis for this admission?: Yes Plan: * Replete * Of note, the patient is on Protonix for GI prophylaxis. (4) Uremia Is this a current diagnosis for this admission?: Yes (5) Acute pancreatitis Qualifiers: Pancreatitis type: unspecified pancreatitis type Acute pancreatitis complication: unspecified Qualified Code(s): K85.90 - Acute pancreatitis with out necrosis or infection, unspecified Is this a current diagnosis for this admission?: Yes Plan: * Abdominal imaging failed to show any acute pancreatic pathology. * WBC 21.2>11.5 on empiric coverage for possible abdominal sepsis. (6) Accelerated hypertension Is this a current diagnosis for this admission?: Yes Plan: * Currently, normotensive. * Home regimen: Nifedipine ER 30 mg p.o. daily, furosemide 20 mg p.o. daily (7) Elevated lactic acid level Is this a current diagnosis for this admission?: Yes Plan: * Improving. * Trend lactate. (8) Diabetes mellitus type 2 in obese Is this a current diagnosis for this admission?: Yes Plan Summary: Okay to transfer to floor from pulmonary/critical care standpoint. Critical Time Critical Time (minutes): 45 Level of Care: ICU -: 1. The care of a critical patient is a dynamic process. This note is a credit resolution representative synopsis but static in nature. The timeframe for treatments given in order is not necessarily the actual time these treatments may have been done. 2. This patient requires critical care secondary to ongoing requirements for therapy not offered or safe outside the critical care environment. Transfer to a lower level of care will result in altered life or limb morbidity and mortality. 3. Multidisciplinary rounds completed. 4. ABCDE bundle addressed.
[2020-06-09] MEDS: MAGNESIUM SULFATE/D5W 1 GM/100 ML RTUPB IV SCH ×3 (13:58→19:27)
[2020-06-09] MEDS: CEFTRIAXONE 1 GM/D5W RTU 1 GM/50 ML RTUPB IV SCH (15:49)
--- NOTE | 2020-06-09 17:39 | Progress Note ---
Provider Note Provider Note: Received signout from development consultant. Patient is a 74-year-old male who presented to the hospital yesterday from dialysis for evaluation of weakness. In the hospital, patient complained of back pain and also had some vomiting. Blood work revealed severe lactic acidosis of 28 as well as pH of 6.8. In the ER he was initially hypotensive and later his blood pressure dropped into the 70s systolic. He was started on Levophed. He received several IV fluid boluses. Nephrology was consulted who performed dialysis on him yesterday and today. He was also started on empiric antibiotics. Labs today shows improvement of his lactic acidosis and resolution of his Metabolic acidosis. Lactic acid is still on 9. Abdominal/pelvic CT was done which did not show any clear cause for his presentation. Of note precontrasted extravasating his right arm and as such did not show up in the CT. Head CT was unremarkable. Lumbar spinal CT was also done due to complaints of back pain which was unremarkable for any cause of his presentation either. Notably he has not had any remarkable pain or tenderness on examination in the ICU. He received dialysis yesterday and today. Nephrology is on board. Being downgraded to the floor today. As of now, the etiology of his lactic acidosis and high anion gap acidosis is unknown. He is alert and awake on my examination and fully oriented. Chest auscultation unremarkable. Abdominal exam is completely benign and nontender. His right arm is swollen but nontender at the site of the contrast extravasation. Has left arm fistula. Thorough skin survey does not reveal any abscess or any tender locations. He has history of left renal cancer status post left nephrectomy. Otherwise does not have any active malignancies. 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 We will repeat labs now and in the morning. Will get a chest CT to look for any occult malignancies. Check UDS. Notably salycilates were negative and not on metformin.
[2020-06-09] MEDS ORDERED: VANCOMYCIN HCL 750 MG in DEXTROSE 5%-WATER 250 ML IV SCH (18:00)
[2020-06-09 20:36] LABS: VENOUS BLOOD BASE EXCESS 5.2 mmol/L; VENOUS BLOOD HCO3 28.6 mmol/L (20-32); VENOUS BLOOD PCO2 37.4 mmHg (35-63); VENOUS BLOOD PH 7.5 (7.30-7.42)
[2020-06-09] MEDS: SODIUM BICARBONATE 650 MG TABLET PO SCH (21:30)
[2020-06-09 21:35] LABS: APPEARANCE,URINE CLEAR; BILIRUBIN,URINE NEGATIVE (NEGATIVE); COLOR,URINE STRAW; GLUCOSE, URINE 50 mg/dL (NEGATIVE); KETONES,URINE TRACE mg/dL (NEGATIVE); PROTEIN,URINE 100 mg/dL (NEGATIVE); URINE SPECIFIC GRAVITY 1.006; UROBILINOGEN,URINE NEGATIVE mg/dL (<2.0)
[2020-06-09 21:48] LABS: URINE AMPHETAMINES SCREEN NEGATIVE; URINE BARBITURATES SCREEN NEGATIVE; URINE BENZODIAZEPINES SCREEN NEGATIVE; URINE COCAINE SCREEN NEGATIVE; URINE MARIJUANA (THC) SCREEN NEGATIVE; URINE METHADONE SCREEN NEGATIVE; URINE PHENCYCLIDINE SCREEN NEGATIVE
[2020-06-09] MEDS ORDERED: SODIUM POLYSTYRENE SULFONATE 15 GM/60 ML PO ONE (22:00)
--- NOTE | 2020-06-09 23:40 | EKG REPORT ---
SEVERITY:- ABNORMAL ECG - SINUS RHYTHM RBBB AND LAFB : Confirmed by: Sandro Horta 09-Jun-2020 23:39:24
--- NOTE | 2020-06-09 23:48 | PDOC PROGRESS REPORT ---
Subjective Date:: 06/09/20 Subjective:: I am seeing the patient during dialysis this morning in the ICU. Patient is much more awake, alert and responsive to questions. He could not remember what happened yesterday. Said he feels fine. He denies any nausea, vomiting or abdominal pain but did admit that he has this low back pain. His blood pressure is very much acceptable during dialysis and is still currently on Levophed. I started him on sodium bicarbonate drip last night because of severe metabolic acidosis. Is currently stable on dialysis. Reason For Visit: ACUTE PANCREATITIS,SEVERE ANION GAP METABOLIC Physical Exam Vital Signs: Temp Pulse Resp BP Pulse Ox 98.8 F 62 22 H 146/44 H 100 06/09/20 01:43 06/09/20 01:43 06/09/20 08:49 06/09/20 08:49 06/09/20 08:48 Intake & Output 06/08/20 06/09/20 06/10/20 06:59 06:59 06:59 Intake Total 2250 Output Total 295 Balance 1955 Weight 87.8 kg Vitals during dialysis: Blood pressure 146/44, heart rate of 54, respiration of 19, oxygen saturation of 100%, blood flow rate of 400 mL/min and dialysate flow rate of 800 mL/min. Exam: General appearance: PRESENT: no acute distress, cooperative, well-developed, well-nourished Head exam: PRESENT: atraumatic, normocephalic Eye exam: PRESENT: conjunctiva slightly pale, PERRLA. ABSENT: scleral icterus Neck exam: ABSENT: JVD Respiratory exam: PRESENT: Normal breath sounds. ABSENT: crackles, rales, rhonchi, unlabored, wheezes Cardiovascular exam: PRESENT: Regular rate rhythm -+S1, +S2. ABSENT: diastolic murmur, systolic murmur GI/Abdominal exam: PRESENT: normal bowel sounds, soft. No PD catheter is present by the abdomen. ABSENT: guarding, mass, tenderness Extremities exam: ABSENT: No edema Neurological exam: PRESENT: alert, awake, oriented to person, place and time. Skin exam: PRESENT: dry, warm, Results Laboratory Results: 06/09/20 05:50 06/09/20 08:17 06/08/20 06/08/20 06/08/20 10:35 10:35 10:35 WBC 17.3 H RBC 3.67 L Hgb 11.4 L Hct 36.6 L MCV 100 H MCH 31.1 MCHC 31.2 L RDW 17.1 H Plt Count 240 Seg Neutrophils % Carbonic Acid HCO3/H2CO3 Ratio ABG pH ABG pCO2 ABG pO2 ABG HCO3 ABG O2 Saturation ABG Base Excess VBG pH VBG pCO2 VBG HCO3 VBG Base Excess Carboxyhemoglobin FiO2 Sodium 146.6 H Potassium 4.7 Chloride 90 L Carbon Dioxide < 5 L* Anion Gap Not Reportable BUN 54 H Creatinine 13.81 H Est GFR ( Amer) 4 L Est GFR (Non-Af Amer) Glucose 104 Lactic Acid Calcium 10.1 Phosphorus Magnesium 2.2 Total Bilirubin 0.5 AST 35 Alkaline Phosphatase 93 Total Protein 8.5 H Albumin 5.4 H Triglycerides Lipase 1032.8 H 06/08/20 06/08/20 06/08/20 10:35 11:36 11:36 WBC RBC Hgb Hct MCV MCH MCHC RDW Plt Count Seg Neutrophils % Carbonic Acid HCO3/H2CO3 Ratio ABG pH ABG pCO2 ABG pO2 ABG HCO3 ABG O2 Saturation ABG Base Excess VBG pH 6.82 L* VBG pCO2 33.2 L VBG HCO3 5.3 L VBG Base Excess -28.6 Carboxyhemoglobin FiO2 Sodium Potassium Chloride Carbon Dioxide Anion Gap BUN Creatinine Est GFR ( Amer) Est GFR (Non-Af Amer) Glucose Lactic Acid 28.9 H Calcium Phosphorus Magnesium Total Bilirubin AST Alkaline Phosphatase Total Protein Albumin Triglycerides 140 Lipase 06/08/20 06/08/20 06/08/20 12:35 14:02 14:02 WBC RBC Hgb Hct MCV MCH MCHC RDW Plt Count Seg Neutrophils % Carbonic Acid 0.68 L HCO3/H2CO3 Ratio 5:1 ABG pH 6.81 L* ABG pCO2 22.5 L ABG pO2 141.9 H ABG HCO3 3.5 L ABG O2 Saturation 96.0 ABG Base Excess -30.0 VBG pH VBG pCO2 VBG HCO3 VBG Base Excess Carboxyhemoglobin 1.0 FiO2 ROOM AIR Sodium Potassium Chloride Carbon Dioxide Anion Gap BUN Creatinine Est GFR ( Amer) Est GFR (Non-Af Amer) Glucose Lactic Acid 32.1 H Calcium Phosphorus Magnesium Total Bilirubin AST Alkaline Phosphatase Total Protein Albumin Triglycerides Lipase 06/08/20 06/08/20 06/08/20 14:02 16:40 16:40 WBC Cancelled 21.2 H RBC Cancelled 3.42 L Hgb Cancelled 10.8 L Hct Cancelled 35.9 L MCV Cancelled 105 H D MCH Cancelled 31.7 MCHC Cancelled 30.2 L RDW Cancelled 17.0 H Plt Count Cancelled 252 Seg Neutrophils % Cancelled Not Reportable Carbonic Acid HCO3/H2CO3 Ratio ABG pH ABG pCO2 ABG pO2 ABG HCO3 ABG O2 Saturation ABG Base Excess VBG pH VBG pCO2 VBG HCO3 VBG Base Excess Carboxyhemoglobin FiO2 Sodium Potassium Chloride Carbon Dioxide Anion Gap BUN Creatinine Est GFR ( Amer) Est GFR (Non-Af Amer) Glucose Lactic Acid 33.1 H Calcium Phosphorus Magnesium Total Bilirubin AST Alkaline Phosphatase Total Protein Albumin Triglycerides Lipase 06/08/20 06/09/20 06/09/20 19:45 03:11 04:50 WBC RBC Hgb Hct MCV MCH MCHC RDW Plt Count Seg Neutrophils % Carbonic Acid 1.02 L Cancelled 0.98 L HCO3/H2CO3 Ratio 11:1 Cancelled 17:1 ABG pH 7.16 L* Cancelled 7.34 L ABG pCO2 34.0 L Cancelled 32.4 L ABG pO2 132.5 H Cancelled 99.5 ABG HCO3 12.0 L Cancelled 16.9 L ABG O2 Saturation 97.9 Cancelled 97.3 ABG Base Excess -15.6 Cancelled -7.9 VBG pH VBG pCO2 VBG HCO3 VBG Base Excess Carboxyhemoglobin FiO2 10L Cancelled 40% Sodium Potassium Chloride Carbon Dioxide Anion Gap BUN Creatinine Est GFR ( Amer) Est GFR (Non-Af Amer) Glucose Lactic Acid Calcium Phosphorus Magnesium Total Bilirubin AST Alkaline Phosphatase Total Protein Albumin Triglycerides Lipase 06/09/20 06/09/20 06/09/20 05:50 05:50 05:50 WBC Cancelled RBC Cancelled Hgb Cancelled Hct Cancelled MCV Cancelled MCH Cancelled MCHC Cancelled RDW Cancelled Plt Count Cancelled Seg Neutrophils % Cancelled Carbonic Acid HCO3/H2CO3 Ratio ABG pH ABG pCO2 ABG pO2 ABG HCO3 ABG O2 Saturation ABG Base Excess VBG pH VBG pCO2 VBG HCO3 VBG Base Excess Carboxyhemoglobin FiO2 Sodium Cancelled Potassium Cancelled Chloride Cancelled Carbon Dioxide Cancelled Anion Gap Cancelled BUN Cancelled Creatinine Cancelled Est GFR ( Amer) Cancelled Est GFR (Non-Af Amer) Cancelled Glucose Cancelled Lactic Acid Cancelled Calcium Cancelled Phosphorus Magnesium Total Bilirubin AST Alkaline Phosphatase Total Protein Albumin Triglycerides Lipase 06/09/20 06/09/20 06/09/20 05:50 08:17 08:17 WBC RBC Hgb Hct MCV MCH MCHC RDW Plt Count Seg Neutrophils % Carbonic Acid HCO3/H2CO3 Ratio ABG pH ABG pCO2 ABG pO2 ABG HCO3 ABG O2 Saturation ABG Base Excess VBG pH VBG pCO2 VBG HCO3 VBG Base Excess Carboxyhemoglobin FiO2 Sodium Cancelled 131.1 L Potassium Cancelled 7.9 H* D Chloride Cancelled 82 L Carbon Dioxide Cancelled 18 L D Anion Gap Cancelled 31 H BUN Cancelled 56 H Creatinine Cancelled 9.35 H Est GFR ( Amer) Cancelled 7 L Est GFR (Non-Af Amer) Cancelled Glucose Cancelled 291 H Lactic Acid 9.0 H Calcium Cancelled 7.2 L Phosphorus Cancelled 5.4 H Magnesium Cancelled 1.5 L Total Bilirubin AST Alkaline Phosphatase Total Protein Albumin Triglycerides Lipase 06/08/20 06/09/20 06/09/20 10:37 05:50 08:17 Troponin I 0.017 NT-Pro-B Natriuret Pep Cancelled 6930 H Impressions: Lumbar Spine X-Ray 06/08/20 10:19 IMPRESSION: Grade 1 anterolisthesis of L5 on S1 with facet arthropathy at the lower 3 disc space levels. Chest X-Ray 06/08/20 11:04 IMPRESSION: NO ACUTE RADIOGRAPHIC FINDING IN THE CHEST. CHRONIC CHANGES INCLUDING CALCIFIED PLEURAL PLAQUES. Head CT 06/08/20 11:22 IMPRESSION: NORMAL BRAIN CT WITHOUT CONTRAST. EVIDENCE OF ACUTE STROKE: NO. Abdomen/Pelvis CT 06/08/20 13:04 IMPRESSION: CHRONIC CHANGES DESCRIBED. APPENDECTOMY AND LEFT NEPHRECTOMY. PERITONEAL DIALYSIS CATHETER PRESENT. CALCIFIED PLEURAL PLAQUES. NO ACUTE FINDING IN THE ABDOMEN OR PELVIS. NOTE THAT NO VASCULAR CONTRAST IS VISUALIZED DUE TO CONTRAST EXTRAVASATION. Assessment & Plan - Diagnosis (1) Metabolic acidosis Is this a current diagnosis for this admission?: Yes Plan: Severe with initial bicarbonate of less than 5 and pH of 6.81. Initially thought to be multifactorial secondary to uremia/ESRD, impending sepsis with elevated lactic acid and acute pancreatitis. So far blood cultures have been negative and urine culture is pending. Lactic acid is now down to 9. Bicarbonate this morning is 18. We will do dialysis today for 3 hours, using the patient's left upper arm AV fistula, with 1 potassium bath, blood flow rate of 400-450 mL per minute, dialysate flow rate of 800 mL per minute, ultrafiltration none, no heparin and no Procrit. Patient stable and tolerating dialysis well. Patient is being monitored throughout dialysis treatment. (2) Elevated lactic acid level Is this a current diagnosis for this admission?: Yes Plan: Presumably due to sepsis but there is no focus of infection currently. Patient was started on ceftriaxone/Flagyl and vancomycin yesterday. Lactic acid level has gone down from 33 to 9 today. No other explanation for elevated lactic acid initially at this point. (3) Uremia Is this a current diagnosis for this admission?: Yes Plan: Resolved with dialysis with improvement of mental status. 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 Apparently the patient has cysts distal portion of the PD catheter left inside the abdomen for what ever reason patient was aware of it. Patient has decided to continue hemodialysis go interested for peritoneal dialysis. Continue hemodialysis support as above. (5) Hyperkalemia Is this a current diagnosis for this admission?: Yes Plan: Patient's potassium this morning was surprisingly elevated despite hemodialysis yesterday and bicarb drip overnight. It was initially 7.9 and repeat during the first hour of dialysis was 5.8. I switch her potassium bath to 1K. Consider effect of heparin on hyperkalemia. (6) Hypertension Is this a current diagnosis for this admission?: Yes Plan: Patient presented initially with hypertension in the ED and became very hypotensive during dialysis treatment yesterday requiring vasopressor. Patient is still currently on Levophed during this dialysis treatment which I think needs to be tapered down since the blood pressure is elevated during dialysis. (7) Acute pancreatitis Qualifiers: Pancreatitis type: unspecified pancreatitis type Acute pancreatitis complication: unspecified Qualified Code(s): K85.90 - Acute pancreatitis without necrosis or infection, unspecified Is this a current diagnosis for this admission?: Yes Plan: Initial lipase is 1033. Initial noncontrast abdominal CT did not show any abnormalities around the pancreas though. Contrast abdominal CT was planned but unfortunately due to IV access the contrast has extravasated. Clinically does not help with symptoms consistent with pancreatitis. (8) Anemia in chronic kidney disease (CKD) Is this a current diagnosis for this admission?: Yes Plan: Does not require Retacrit at this time. (9) Diabetes mellitus type 2 in nonobese Is this a current diagnosis for this admission?: Yes Plan: Was initially hypoglycemic and is currently improved. - Time Time with patient: 15-25 minutes
[2020-06-10] MEDS: METRONIDAZOLE 500 MG/NS RTU 500 MG/100 ML RTUPB IV SCH ×3 (05:49→17:38)
[2020-06-10] MEDS: HEPARIN SOD (PORCINE) 5,000 UNIT/ML 1 ML VIAL SUBCUT SCH ×3 (05:50→22:15)
[2020-06-10 06:54] LABS: ALBUMIN 3.5 g/dL (3.5-5.0); ALKALINE PHOSPHATASE 79 U/L (38-126); ANION GAP 11 (5-19); ASPARTATE AMINO TRANSFERASE 73 U/L (17-59); BILIRUBIN,DIRECT 0.4 mg/dL (0.0-0.4); BILIRUBIN,TOTAL 0.5 mg/dL (0.2-1.3); BLOOD UREA NITROGEN 49 mg/dL (7-20); CALCIUM 7.3 mg/dL (8.4-10.2); CHLORIDE 90 mmol/L (98-107); GLUCOSE 158 mg/dL (75-110); PHOSPHORUS 4.9 mg/dL (2.5-4.5)
[2020-06-10 06:55] LABS: HEMATOCRIT 28.1 % (37.9-51.0); HEMOGLOBIN 9.7 g/dL (13.5-17.0); MEAN CORPUSCULAR HGB CONC 34.3 g/dL (32.0-36.0); MEAN CORPUSCULAR VOLUME 93 fl (80-97); PLATELET COUNT 113 10^3/uL (150-450); RED BLOOD COUNT 3.02 10^6/uL (4.35-5.55); RED CELL DISTRIBUTION WIDTH 16.7 % (11.5-14.0); WHITE BLOOD COUNT 8.8 10^3/uL (4.0-10.5)
[2020-06-10 07:06] LABS: CARBON DIOXIDE 32 mmol/L (22-30); POTASSIUM 4.9 mmol/L (3.6-5.0)
--- NOTE | 2020-06-10 07:17 | RADIOLOGY REPORT (SQ) ---
CLINICAL HISTORY: severe lactic acidosis. r/o occult malignancy COMPARISON: None. TECHNIQUE: CT CHEST WITHOUT IV CONTRAST on 06/09/2020 12:00 AM DIRECTOR OF RESEARCH This exam was performed according to our departmental dose-optimization program, which includes automated exposure control, adjustment of the mA and/or kV according to patient size and/or use of iterative reconstruction technique. FINDINGS: The heart is grossly enlarged. The midascending thoracic aorta is dilated at 4.3 cm. There is no pericardial effusion. Intrathoracic lymph nodes are not enlarged. There are small pleural effusions. There are extensive bilateral calcified and noncalcified pleural plaques. Central airways are patent. Lungs are clear with no consolidation, mass or interstitial lung disease. There are no acute abnormalities within the limited images of the upper abdomen. There are no acute osseous findings. No suspicious bony lesions. IMPRESSION: Cardiomegaly with mildly dilated mid ascending thoracic aorta. Small pleural effusions with extensive asbestos-related pleural disease.
[2020-06-10 07:23] LABS: ABSOLUTE LYMPHOCYTES# (MANUAL) 0.4 10^3/uL (0.5-4.7); ABSOLUTE MONOCYTES # (MANUAL) 0.6 10^3/uL (0.1-1.4); BAND NEUTROPHILS % (MANUAL) 1 % (3-5); BASOPHILS % (MANUAL) 0 % (0-2); EOSINOPHILS % (MANUAL) 0 % (0-6); LYMPHOCYTES % (MANUAL) 4 % (13-45); MONOCYTES % (MANUAL) 7 % (3-13); SEGMENTED NEUTROPHILS % (MAN) 88 % (42-78); TOTAL CELLS COUNTED 100
[2020-06-10 07:25] LABS: PLATELET COMMENT ADEQUATE
[2020-06-10] MEDS: INSULIN LISPRO 100 UNIT/ML 3 ML VIAL SUBCUT SCH ×4 (08:31→22:16)
[2020-06-10] MEDS: SODIUM BICARBONATE 650 MG TABLET PO SCH ×2 (11:15→22:16)
[2020-06-10] MEDS: PANTOPRAZOLE SODIUM 40 MG VIAL IV SCH (11:15)
--- NOTE | 2020-06-10 15:51 | PDOC PROGRESS REPORT ---
Subjective Date:: 06/10/20 Subjective:: No adverse events overnight. No new complaints. Vital signs been stable. Eati ng and drinking without difficulty. He said he had not missed any dialysis treatments. He said he not had any changes in any of his medications. Still no evidence of infection. He has had numerous imaging studies, no evidence of malignancy or any other obvious source for his acute presentation. Reason For Visit: ACUTE PANCREATITIS,SEVERE ANION GAP METABOLIC Physical Exam Vital Signs: Temp Pulse Resp BP Pulse Ox 98.6 F 81 12 158/88 H 91 L 06/10/20 12:00 06/10/20 12:00 06/10/20 12:00 06/10/20 12:00 06/10/20 12:00 Intake & Output 06/09/20 06/10/20 06/11/20 06:59 06:59 06:59 Intake Total 2350 1072 260 Output Total 395 1100 200 Balance 1954 60 Weight 87.8 kg 87.8 kg 87.8 kg General appearance: PRESENT: no acute distress, cooperative, disheveled Respiratory exam: PRESENT: clear to auscultation rosi, symmetrical, unlabored. ABSENT: accessory muscle use, chest wall tenderness, prolonged expiratory phas, rhonchi, tachypnea, wheezes Cardiovascular exam: PRESENT: RRR, +S1, +S2 Pulses: PRESENT: normal carotid pulses Vascular exam: PRESENT: normal capillary refill GI/Abdominal exam: PRESENT: normal bowel sounds, soft. ABSENT: distended, guarding, rebound, tenderness Extremities exam: ABSENT: clubbing, pedal edema Musculoskeletal exam: PRESENT: normal inspection. ABSENT: deformity Neurological exam: PRESENT: alert, awake, oriented to person, oriented to place, oriented to situation Psychiatric exam: PRESENT: appropriate affect, normal mood Skin exam: PRESENT: dry, warm Results Laboratory Results: 06/10/20 05:31 06/10/20 05:31 06/09/20 06/09/20 06/09/20 20:20 20:21 20:21 WBC RBC Hgb Hct MCV MCH MCHC RDW Plt Count Seg Neutrophils % VBG pH 7.50 H VBG pCO2 37.4 VBG HCO3 28.6 VBG Base Excess 5.2 Sodium Potassium Chloride Carbon Dioxide Anion Gap BUN Creatinine Est GFR ( Amer) Glucose Lactic Acid 1.6 Calcium Phosphorus Magnesium Total Bilirubin AST Alkaline Phosphatase Total Protein Albumin Urine Color STRAW Urine Appearance CLEAR Urine pH 9.0 Ur Specific Corry 1.006 Urine Protein 100 H Urine Glucose (UA) 50 H Urine Ketones TRACE H Urine Blood MODERATE H Urine RBC (Auto) 18 06/09/20 06/10/20 06/10/20 20:21 05:31 05:31 WBC 8.8 RBC 3.02 L Hgb 9.7 L Hct 28.1 L MCV 93 MCH 32.0 MCHC 34.3 RDW 16.7 H Plt Count 113 L Seg Neutrophils % Not Reportable VBG pH VBG pCO2 VBG HCO3 VBG Base Excess Sodium 132.7 L Potassium 6.3 H* 4.9 D Chloride 90 L Carbon Dioxide 32 H D Anion Gap 11 BUN 49 H Creatinine 7.22 H Est GFR ( Amer) 9 L Glucose 158 H Lactic Acid Calcium 7.3 L Phosphorus 4.9 H Magnesium 2.3 Total Bilirubin 0.5 AST 73 H Alkaline Phosphatase 79 Total Protein 6.0 L Albumin 3.5 Urine Color Urine Appearance Urine pH Ur Specific Corry Urine Protein Urine Glucose (UA) Urine Ketones Urine Blood Urine RBC (Auto) 06/08/20 06/09/20 06/09/20 10:37 05:50 08:17 Troponin I 0.017 NT-Pro-B Natriuret Pep Cancelled 6930 H Impressions: Lumbar Spine X-Ray 06/08/20 10:19 IMPRESSION: Grade 1 anterolisthesis of L5 on S1 with facet arthropathy at the lower 3 disc space levels. Chest X-Ray 06/08/20 11:04 IMPRESSION: NO ACUTE RADIOGRAPHIC FINDING IN THE CHEST. CHRONIC CHANGES INCLUDING CALCIFIED PLEURAL PLAQUES. Head CT 06/08/20 11:22 IMPRESSION: NORMAL BRAIN CT WITHOUT CONTRAST. EVIDENCE OF ACUTE STROKE: NO. Abdomen/Pelvis CT 06/08/20 13:04 IMPRESSION: CHRONIC CHANGES DESCRIBED. APPENDECTOMY AND LEFT NEPHRECTOMY. PERITONEAL DIALYSIS CATHETER PRESENT. CALCIFIED PLEURAL PLAQUES. NO ACUTE FINDING IN THE ABDOMEN OR PELVIS. NOTE THAT NO VASCULAR CONTRAST IS VISUALIZED DUE TO CONTRAST EXTRAVASATION. Chest CT 06/09/20 00:00 IMPRESSION: Cardiomegaly with mildly dilated mid ascending thoracic aorta. Small pleural effusions with extensive asbestos-related pleural disease. Assessment and Plan - Diagnosis (1) Uremia Is this a current diagnosis for this admission?: Yes (2) High anion gap metabolic acidosis Is this a current diagnosis for this admission?: Yes (3) End stage renal disease Is this a current diagnosis for this admission?: Yes (4) Anemia in chronic kidney disease (CKD) Qualifiers: Chronic kidney disease stage: on chronic dialysis Qualified Code(s): N18.6 - End stage renal disease; D63.1 - Anemia in chronic kidney disease; Z99.2 - Dependence on renal dialysis Is this a current diagnosis for this admission?: Yes (5) Diabetes mellitus type 2 in nonobese Is this a current diagnosis for this admission?: Yes (6) Hyperkalemia Is this a current diagnosis for this admission?: Yes (7) Hypomagnesemia Is this a current diagnosis for this admission?: Yes (8) Hypertension Qualifiers: Hypertension type: renovascular hypertension Qualified Code(s): I15.0 - Renovascular hypertension Is this a current diagnosis for this admission?: Yes (9) Acute pancreatitis Qualifiers: Pancreatitis type: unspecified pancreatitis type Acute pancreatitis complication: unspecified Qualified Code(s): K85.90 - Acute pancreatitis without necrosis or infection, unspecified Is this a current diagnosis for this admission?: Yes - Plan Summary Summary: At this point the reason for his profound metabolic acidosis is unknown. He gets dialysis on Tuesdays, , and Saturdays. He said he had not been missing any dialysis sessions. No evidence of infection has been found. Nothing really revealing on imaging of his chest, abdomen, or pelvis. His labs seem to have fairly well corrected. He is received hemodialysis a couple of days in a row, did not get it today, will likely get it tomorrow before he goes home. This will give us another day to see if his cultures grow anything. He denies any changes in his medications that would have triggered such an event. - Time Time Spent with patient: 15-24 minutes Anticipated Discharge Disposition: Home, Self Care Anticipated Discharge Timeframe: within 24 hours
[2020-06-10] MEDS: CEFTRIAXONE 1 GM/D5W RTU 1 GM/50 ML RTUPB IV SCH (16:38)
[2020-06-10] MEDS ORDERED: EPOETIN ALFA-EPBX 2,000 UNIT, EPOETIN ALFA-EPBX 3,000 UNIT in SYRINGE, DISPOSABLE, 1 EACH IV PRN (21:42)
--- NOTE | 2020-06-10 21:42 | PDOC PROGRESS REPORT ---
Subjective Date:: 06/10/20 Subjective:: Patient is much better today and is on his baseline mental state. He is awake a nd communicative . He reports that prior to admission the some nausea, vomiting low back pain and he knew about the episode of hypoglycemia. When I probed into the possible cause of sudden severe metabolic acidosis upon presentation, the patient admitted that he restarted his Metformin on his own 2 to 3 weeks ago taking about 2000 mg daily from an old prescription bottle he had at least a couple years ago when it was initially discontinued. Patient told me that his primary care provider, Dr. Blackwood is starting him on insulin but he is a still waiting for the insurance approval so he took it upon himself to take the Metformin that he had. Reason For Visit: ACUTE PANCREATITIS,SEVERE ANION GAP METABOLIC Physical Exam Vital Signs: Temp Pulse Resp BP Pulse Ox 98.6 F 81 12 158/88 H 91 L 06/10/20 12:00 06/10/20 12:00 06/10/20 12:00 06/10/20 12:00 06/10/20 12:00 Intake & Output 06/09/20 06/10/20 06/11/20 06:59 06:59 06:59 Intake Total 2350 1072 260 Output Total 395 1100 200 Balance 1954 60 Weight 87.8 kg 87.8 kg 87.8 kg Exam: General appearance: PRESENT: no acute distress, cooperative, well-developed, well-nourished Head exam: PRESENT: atraumatic, normocephalic Eye exam: PRESENT: conjunctiva pink, PERRLA. ABSENT: scleral icterus Neck exam: ABSENT: JVD Respiratory exam: PRESENT: Normal breath sounds. ABSENT: crackles, rales, rhonchi, unlabored, wheezes Cardiovascular exam: PRESENT: Regular rate rhythm -+S1, +S2. ABSENT: diastolic murmur, systolic murmur GI/Abdominal exam: PRESENT: normal bowel sounds, soft. ABSENT: guarding, mass, tenderness Extremities exam: ABSENT: No edema Neurological exam: PRESENT: alert, awake, oriented to person, place and time. Skin exam: PRESENT: dry, warm, Results Laboratory Results: 06/10/20 05:31 06/10/20 05:31 06/09/20 06/09/20 06/09/20 20:20 20:21 20:21 WBC RBC Hgb Hct MCV MCH MCHC RDW Plt Count Seg Neutrophils % VBG pH 7.50 H VBG pCO2 37.4 VBG HCO3 28.6 VBG Base Excess 5.2 Sodium Potassium Chloride Carbon Dioxide Anion Gap BUN Creatinine Est GFR ( Amer) Glucose Lactic Acid 1.6 Calcium Phosphorus Magnesium Total Bilirubin AST Alkaline Phosphatase Total Protein Albumin Urine Color STRAW Urine Appearance CLEAR Urine pH 9.0 Ur Specific [place] 1.006 Urine Protein 100 H Urine Glucose (UA) 50 H Urine Ketones TRACE H Urine Blood MODERATE H Urine RBC (Auto) 18 06/09/20 06/10/20 06/10/20 20:21 05:31 05:31 WBC 8.8 RBC 3.02 L Hgb 9.7 L Hct 28.1 L MCV 93 MCH 32.0 MCHC 34.3 RDW 16.7 H Plt Count 113 L Seg Neutrophils % Not Reportable VBG pH VBG pCO2 VBG HCO3 VBG Base Excess Sodium 132.7 L Potassium 6.3 H* 4.9 D Chloride 90 L Carbon Dioxide 32 H D Anion Gap 11 BUN 49 H Creatinine 7.22 H Est GFR ( Amer) 9 L Glucose 158 H Lactic Acid Calcium 7.3 L Phosphorus 4.9 H Magnesium 2.3 Total Bilirubin 0.5 AST 73 H Alkaline Phosphatase 79 Total Protein 6.0 L Albumin 3.5 Urine Color Urine Appearance Urine pH Ur Specific [place] Urine Protein Urine Glucose (UA) Urine Ketones Urine Blood Urine RBC (Auto) 06/08/20 06/09/20 06/09/20 10:37 05:50 08:17 Troponin I 0.017 NT-Pro-B Natriuret Pep Cancelled 6930 H Impressions: Lumbar Spine X-Ray 06/08/20 10:19 IMPRESSION: Grade 1 anterolisthesis of L5 on S1 with facet arthropathy at the lower 3 disc space levels. Chest X-Ray 06/08/20 11:04 IMPRESSION: NO ACUTE RADIOGRAPHIC FINDING IN THE CHEST. CHRONIC CHANGES INCLUDING CALCIFIED PLEURAL PLAQUES. Head CT 06/08/20 11:22 IMPRESSION: NORMAL BRAIN CT WITHOUT CONTRAST. EVIDENCE OF ACUTE STROKE: NO. Abdomen/Pelvis CT 06/08/20 13:04 IMPRESSION: CHRONIC CHANGES DESCRIBED. APPENDECTOMY AND LEFT NEPHRECTOMY. PERITONEAL DIALYSIS CATHETER PRESENT. CALCIFIED PLEURAL PLAQUES. NO ACUTE FINDING IN THE ABDOMEN OR PELVIS. NOTE THAT NO VASCULAR CONTRAST IS VISUALIZED DUE TO CONTRAST EXTRAVASATION. Chest CT 06/09/20 00:00 IMPRESSION: Cardiomegaly with mildly dilated mid ascending thoracic aorta. Small pleural effusions with extensive asbestos-related pleural disease. Assessment & Plan - Diagnosis (1) Metabolic acidosis Is this a current diagnosis for this admission?: Yes Plan: Severe with initial bicarbonate of less than 5 and pH of 6.81. Lactic acid was elevated up to 33 which came down now to 1.6 after 2 dialysis treatments. His current bicarbonate is 32. Per history since the patient does not have any evidence of any sepsis nor other causes of lactic acidosis, his severe metabolic and lactic acidosis is due to intake of Metformin initiated by patient. Today I strongly advised the patient not to take the Metformin ever again and to throw the remaining medication he ferrell s left at home. I explained to him that the Metformin can cause lactic acidosis which could be life-threatening if not treated immediately just like what happened to him during this admission. (2) Elevated lactic acid level Is this a current diagnosis for this admission?: Yes Plan: Lactic acid is now done down from 33 to1.6 which is within normal limits. As a stated above this is most likely secondary to Metformin use without any evidence of any other cause including sepsis. (3) End stage renal disease Is this a current diagnosis for this admission?: Yes Plan: Plan for dialysis tomorrow. (4) Uremia Is this a current diagnosis for this admission?: Yes Plan: Resolved. (5) Hyperkalemia Is this a current diagnosis for this admission?: Yes Plan: Resolved. (6) Hypertension Qualifiers: Hypertension type: renovascular hypertension Qualified Code(s): I15.0 - Renovascular hypertension Is this a current diagnosis for this admission?: Yes Plan: Patient presented initially with hypertension in the ED and became very hypotensive during dialysis treatment 2 days ago requiring vasopressor. Currently at baseline blood pressures. (7) Acute pancreatitis Qualifiers: Pancreatitis type: unspecified pancreatitis type Acute pancreatitis c omplication: unspecified Qualified Code(s): K85.90 - Acute pancreatitis without necrosis or infection, unspecified Is this a current diagnosis for this admission?: Yes Plan: Lipase level today is at 38,980 from initial 1003 2.8. Surprisingly though the patient does not have any nuchal nor radiographic evidence of acute pancreatitis. Not sure what to make of this. (8) Anemia in chronic kidney disease (CKD) Qualifiers: Chronic kidney disease stage: on chronic dialysis Qualified Code(s): N18.6 - End stage renal disease; D63.1 - Anemia in chronic kidney disease; Z99.2 - Dependence on renal dialysis Is this a current diagnosis for this admission?: Yes Plan: Retacrit as needed during dialysis. (9) Diabetes mellitus type 2 in nonobese Is this a current diagnosis for this admission?: Yes Plan: Acceptable control. Again I advised the patient not to take Metformin at any one time following this hospitalization. - Time Time with patient: 15-25 minutes
[2020-06-11] MEDS: METRONIDAZOLE 500 MG/NS RTU 500 MG/100 ML RTUPB IV SCH ×3 (00:28→13:49)
[2020-06-11] MEDS ORDERED: NORMAL SALINE 1000 ML 1,000 ML IV PRN (05:00)
[2020-06-11] MEDS: HEPARIN SOD (PORCINE) 5,000 UNIT/ML 1 ML VIAL SUBCUT SCH ×2 (05:29→14:05)
[2020-06-11 05:31] LABS: ABSOLUTE LYMPHOCYTES (AUTO) 0.5 10^3/uL (0.5-4.7); ABSOLUTE NEUT (AUTO) 7.6 10^3/uL (1.7-8.2); BASOPHILS % (AUTO) 0.5 % (0-2); EOSINOPHILS % (AUTO) 0.3 % (0-6); HEMATOCRIT 28.4 % (37.9-51.0); HEMOGLOBIN 9.7 g/dL (13.5-17.0); LYMPHOCYTES % (AUTO) 5.6 % (13-45); MEAN CORPUSCULAR HGB CONC 34.1 g/dL (32.0-36.0); MEAN CORPUSCULAR VOLUME 94 fl (80-97); MONOCYTES % (AUTO) 10.7 % (3-13); PLATELET COUNT 109 10^3/uL (150-450); RED BLOOD COUNT 3.03 10^6/uL (4.35-5.55); RED CELL DISTRIBUTION WIDTH 16.2 % (11.5-14.0); SEGMENTED NEUTROPHILS % (AUTO) 82.9 % (42-78); TOTAL CELLS COUNTED % (AUTO) 100 %; WHITE BLOOD COUNT 9.1 10^3/uL (4.0-10.5)
[2020-06-11 05:48] LABS: VANCOMYCIN,TROUGH 7.8 ug/mL (5.0-20.0)
[2020-06-11 05:55] LABS: ANION GAP 10 (5-19); BLOOD UREA NITROGEN 66 mg/dL (7-20); CALCIUM 7.4 mg/dL (8.4-10.2); CARBON DIOXIDE 32 mmol/L (22-30); CHLORIDE 93 mmol/L (98-107); GLUCOSE 96 mg/dL (75-110)
[2020-06-11] MEDS: INSULIN LISPRO 100 UNIT/ML 3 ML VIAL SUBCUT SCH ×2 (08:27→12:25)
[2020-06-11] MEDS: PANTOPRAZOLE SODIUM 40 MG VIAL IV SCH (12:25)
--- NOTE | 2020-06-11 12:34 | PDOC PROGRESS REPORT ---
Subjective Date:: 06/11/20 Subjective:: In hemodialysis Reason For Visit: ACUTE PANCREATITIS,SEVERE ANION GAP METABOLIC Physical Exam Vital Signs: Temp Pulse Resp BP Pulse Ox 98.7 F 79 16 165/55 H 96 06/11/20 08:12 06/11/20 07:54 06/11/20 07:54 06/11/20 07:54 06/11/20 07:54 Intake & Output 06/10/20 06/11/20 06/12/20 06:59 06:59 06:59 Intake Total 1122 800 Output Total 1100 1075 Balance 22 -275 Weight 87.8 kg 84.9 kg General appearance: PRESENT: no acute distress, cooperative, well-developed Head exam: PRESENT: atraumatic, normocephalic Respiratory exam: PRESENT: clear to auscultation rosi, symmetrical, unlabored. ABSENT: rales, rhonchi, tachypnea, wheezes Cardiovascular exam: PRESENT: RRR, +S1, +S2. ABSENT: bradycardia, diastolic murmur, irregular rhythm, systolic murmur, tachycardia GI/Abdominal exam: PRESENT: normal bowel sounds, soft. ABSENT: tenderness - No tenderness in the epigastrium Rectal exam: PRESENT: deferred Gentrourinary exam: ABSENT: indwelling catheter Neurological exam: PRESENT: alert, awake, oriented to person, oriented to place, oriented to time, oriented to situation, CN II-XII grossly intact. ABSENT: altered Psychiatric exam: PRESENT: appropriate affect. ABSENT: agitated, anxious Focused psych exam: ABSENT: delusional, paranoid, restlessness Skin exam: PRESENT: dry, normal color, warm. ABSENT: rash Results Laboratory Results: 06/11/20 05:19 06/11/20 05:19 06/10/20 06/11/20 06/11/20 05:31 05:19 05:19 WBC 9.1 RBC 3.03 L Hgb 9.7 L Hct 28.4 L MCV 94 MCH 32.0 MCHC 34.1 RDW 16.2 H Plt Count 109 L Seg Neutrophils % 82.9 H Sodium 135.4 L Potassium 4.0 Chloride 93 L Carbon Dioxide 32 H Anion Gap 10 BUN 66 H Creatinine 9.49 H Est GFR ( Amer) 7 L Glucose 96 Calcium 7.4 L Ionized Calcium Shira Lipase 40462.1 H 89929.4 H 06/11/20 05:19 WBC RBC Hgb Hct MCV MCH MCHC RDW Plt Count Seg Neutrophils % Sodium Potassium Chloride Carbon Dioxide Anion Gap BUN Creatinine Est GFR ( Amer) Glucose Calcium Ionized Calcium Shira 0.90 L Lipase 06/09/20 20:20 Catheterized Urine Urine Culture - Final NO GROWTH 2 DAYS 06/08/20 06/09/20 06/09/20 10:37 05:50 08:17 Troponin I 0.017 NT-Pro-B Natriuret Pep Cancelled 6930 H Impressions: Lumbar Spine X-Ray 06/08/20 10:19 IMPRESSION: Grade 1 anterolisthesis of L5 on S1 with facet arthropathy at the lower 3 disc space levels. Chest X-Ray 06/08/20 11:04 IMPRESSION: NO ACUTE RADIOGRAPHIC FINDING IN THE CHEST. CHRONIC CHANGES INCLUDING CALCIFIED PLEURAL PLAQUES. Head CT 06/08/20 11:22 IMPRESSION: NORMAL BRAIN CT WITHOUT CONTRAST. EVIDENCE OF ACUTE STROKE: NO. Abdomen/Pelvis CT 06/08/20 13:04 IMPRESSION: CHRONIC CHANGES DESCRIBED. APPENDECTOMY AND LEFT NEPHRECTOMY. PERITONEAL DIALYSIS CATHETER PRESENT. CALCIFIED PLEURAL PLAQUES. NO ACUTE FINDING IN THE ABDOMEN OR PELVIS. NOTE THAT NO VASCULAR CONTRAST IS VISUALIZED DUE TO CONTRAST EXTRAVASATION. Chest CT 06/09/20 00:00 IMPRESSION: Cardiomegaly with mildly dilated mid ascending thoracic aorta. Small pleural effusions with extensive asbestos-related pleural disease. Assessment and Plan - Plan Summary Summary: At this point the reason for his profound metabolic acidosis is unknown. He gets dialysis on Tuesdays, , and Saturdays. He said he had not been missing any dialysis sessions. No evidence of infection has been found. Nothing really revealing on imaging of his chest, abdomen, or pelvis. His labs seem to have fairly well corrected. He is received hemodialysis a couple of days in a row, did not get it today, will likely get it tomorrow before he goes home. This will give us another day to see if his cultures grow anything. He denies any changes in his medications that would have triggered such an event.
[2020-06-11] MEDS: SODIUM BICARBONATE 650 MG TABLET PO SCH (12:54)
--- NOTE | 2020-06-11 14:44 | PDOC PROGRESS REPORT ---
Subjective Date:: 06/11/20 Subjective:: I am seeing the patient on dialysis this afternoon. He is at his baseline menta l status. He said he feels pretty good and has no complaints. He denies any nausea, vomiting or abdominal pain. He is comfortable receiving dialysis. He still making some urine, urine output was 1025 mL for the last 24 hours. Reason For Visit: ACUTE PANCREATITIS,SEVERE ANION GAP METABOLIC Physical Exam Vital Signs: Temp Pulse Resp BP Pulse Ox 98.6 F 80 20 148/60 H 93 06/11/20 11:15 06/11/20 11:15 06/11/20 11:15 06/11/20 11:15 06/11/20 11:15 Intake & Output 06/10/20 06/11/20 06/12/20 06:59 06:59 06:59 Intake Total 1122 900 120 Output Total 1100 1075 125 Balance 22 -175 -5 Weight 87.8 kg 84.9 kg Vitals during dialysis: Blood pressure 159/71, heart rate of 78, blood flow rate of 400 mL/min and dialysate flow rate of 800 mL/min. Exam: General appearance: PRESENT: no acute distress, cooperative, well-developed, well-nourished Head exam: PRESENT: atraumatic, normocephalic Eye exam: PRESENT: conjunctiva slightly pale, PERRLA. ABSENT: scleral icterus Neck exam: ABSENT: JVD Respiratory exam: PRESENT: Normal breath sounds. ABSENT: crackles, rales, rhonchi, unlabored, wheezes Cardiovascular exam: PRESENT: Regular rate rhythm -+S1, +S2. ABSENT: diastolic murmur, systolic murmur GI/Abdominal exam: PRESENT: normal bowel sounds, soft. ABSENT: guarding, mass, tenderness Extremities exam: ABSENT: No edema Neurological exam: PRESENT: alert, awake, oriented to person, place and time. Skin exam: PRESENT: dry, warm, Results Laboratory Results: 06/11/20 05:19 06/11/20 05:19 06/10/20 06/11/20 06/11/20 05:31 05:19 05:19 WBC 9.1 RBC 3.03 L Hgb 9.7 L Hct 28.4 L MCV 94 MCH 32.0 MCHC 34.1 RDW 16.2 H Plt Count 109 L Seg Neutrophils % 82.9 H Sodium 135.4 L Potassium 4.0 Chloride 93 L Carbon Dioxide 32 H Anion Gap 10 BUN 66 H Creatinine 9.49 H Est GFR ( Amer) 7 L Glucose 96 Calcium 7.4 L Ionized Calcium [place]ira Lipase 07288.1 H 06734.4 H 06/11/20 05:19 WBC RBC Hgb Hct MCV MCH MCHC RDW Plt Count Seg Neutrophils % Sodium Potassium Chloride Carbon Dioxide Anion Gap BUN Creatinine Est GFR ( Amer) Glucose Calcium Ionized Calcium [place]ira 0.90 L Lipase 06/09/20 20:20 Catheterized Urine Urine Culture - Final NO GROWTH 2 DAYS 06/08/20 06/09/20 06/09/20 10:37 05:50 08:17 Troponin I 0.017 NT-Pro-B Natriuret Pep Cancelled 6930 H Impressions: Lumbar Spine X-Ray 06/08/20 10:19 IMPRESSION: Grade 1 anterolisthesis of L5 on S1 with facet arthropathy at the lower 3 disc space levels. Chest X-Ray 06/08/20 11:04 IMPRESSION: NO ACUTE RADIOGRAPHIC FINDING IN THE CHEST. CHRONIC CHANGES INCLUDING CALCIFIED PLEURAL PLAQUES. Head CT 06/08/20 11:22 IMPRESSION: NORMAL BRAIN CT WITHOUT CONTRAST. EVIDENCE OF ACUTE STROKE: NO. Abdomen/Pelvis CT 06/08/20 13:04 IMPRESSION: CHRONIC CHANGES DESCRIBED. APPENDECTOMY AND LEFT NEPHRECTOMY. PERITONEAL DIALYSIS CATHETER PRESENT. CALCIFIED PLEURAL PLAQUES. NO ACUTE FINDING IN THE ABDOMEN OR PELVIS. NOTE THAT NO VASCULAR CONTRAST IS VISUALIZED DUE TO CONTRAST EXTRAVASATION. Chest CT 06/09/20 00:00 IMPRESSION: Cardiomegaly with mildly dilated mid ascending thoracic aorta. Small pleural effusions with extensive asbestos-related pleural disease. Assessment & Plan - Diagnosis (1) End stage renal disease Is this a current diagnosis for this admission?: Yes Plan: We will do dialysis today for 3 hours, using the patient's left arm AV fistula, with 3 calcium with 3 potassium bath, blood flow rate of 450 mL per minute, dialysate flow rate of 800 mL per minute, ultrafiltration 1 L as tolerated, no heparin and Procrit with 5000 units during dialysis intravenously. Patient will be monitored throughout dialysis treatment. (2) Metabolic acidosis Is this a current diagnosis for this admission?: Yes Plan: Severe with initial bicarbonate of less than 5 and pH of 6.81. Lactic acid was elevated up to 33 which came down to 1.6 after 2 dialysis treatments. His current bicarbonate is 32. Discontinue oral sodium bicarbonate. Per history since the patient does not have any evidence of any sepsis nor other causes of lactic acidosis, his severe metabolic and lactic acidosis is due to intake of Metformin initiated by patient for the past 2 to 3 weeks. I strongly advised the patient not to take the Metformin ever again and to throw the remaining medication he has left at home. I explained to him that the Metformin can cause lactic acidosis which could be life-threatening if not treated immediately just like what happened to him during this admission. Patient understood. (3) Elevated lactic acid level Is this a current diagnosis for this admission?: Yes Plan: Lactic acid is now done down from 33 to1.6 which is within normal limits. As a stated above this is most likely secondary to Metformin use without any evidence of any other cause including sepsis. Recommend to discontinue all antibiotics. (4) Uremia Is this a current diagnosis for this admission?: Yes Plan: Resolved. (5) Hyperkalemia Is this a current diagnosis for this admission?: Yes Plan: Resolved. (6) Hypertension Qualifiers: Hypertension type: renovascular hypertension Qualified Code(s): I15.0 - Renovascular hypertension Is this a current diagnosis for this admission?: Yes Plan: Patient presented initially with hypertension in the ED and became very hypotensive during dialysis treatment 2 days ago requiring vasopressor. Currently at baseline blood pressures. May resume nifedipine upon discharge. (7) Acute pancreatitis Qualifiers: Pancreatitis type: unspecified pancreatitis type Acute pancreatitis complication: unspecified Qualified Code(s): K85.90 - Acute pancreatitis without necrosis or infection, unspecified Is this a current diagnosis for this admission?: Yes Plan: Lipase level yesterday at 38,980 from initial 1032.8. Surprisingly though the patient does not have any clinical nor radiographic evidence of acute pancreatitis. Not sure what to make of this. (8) Anemia in chronic kidney disease (CKD) Qualifiers: Chronic kidney disease stage: on chronic dialysis Qualified Code(s): N18.6 - End stage renal disease; D63.1 - Anemia in chronic kidney disease; Z99.2 - Dependence on renal dialysis Is this a current diagnosis for this admission?: Yes Plan: Retacrit as needed during dialysis. (9) Diabetes mellitus type 2 in nonobese Is this a current diagnosis for this admission?: Yes Plan: Acceptable control. Again I advised the patient not to take Metformin at any one time following this hospitalization. - Notes Notes: Discussed with Dr. Clements. From nephrology standpoint I think the patient is stable to be discharged home after dialysis today. Patient to resume his normal outpatient dialysis at [facility] tomorrow. - Time Time with patient: 15-25 minutes
--- NOTE | 2020-06-11 16:42 | PDOC DISCHARGE SUMMARY ---
Impression - Admit/DC Date/PCP Admission Date/Primary Care Provider: 06/08/20 16:14 BRAULIO HANCOCK MD Discharge Date: 06/11/20 - Assessment Summary: At this point the reason for his profound metabolic acidosis is unknown. He gets dialysis on Tuesdays, , and Saturdays. He said he had not been missing any dialysis sessions. No evidence of infection has been found. Nothing really revealing on imaging of his chest, abdomen, or pelvis. His labs seem to have fairly well corrected. He is received hemodialysis a couple of days in a row, did not get it today, will likely get it tomorrow before he goes home. This will give us another day to see if his cultures grow anything. He denies any changes in his medications that would have triggered such an event. - Additional Information Resuscitation Status: Full Code Discharge Diet: Cardiac, Diabetic Discharge Activity: Activity As Tolerated, Balance Activity w/Rest Referrals: BRAULIO HANCOCK MD [Primary Care Provider] - 06/18/20 10:15 am (fax records to providers office when getting discharged) Home Medications: Glimepiride [Amaryl 4 mg Tablet] 4 mg PO BID 02/26/14 Rosuvastatin Calcium [Crestor 10 mg Tablet] 10 mg PO QHS 02/23/19 Linagliptin [Tradjenta] 5 mg PO DAILY 05/12/19 Nifedipine [Nifedipine ER] 30 mg PO DAILY 05/12/19 B Complex W-C No.20/Folic Acid [Renal Caps Softgel] 1 mg PO DAILY 06/08/20 History of Present Illiness History of Present Illness: JACOB KAHN JR - This 74-year-old -[place] male end-stage renal disease patient is seen in the emergency department. He presented to [facility] emergency department with complaints of "feeling sick" and "back pain", which the patient admits her chronic problems. He does admit that he missed his last dialysis session. Apparently, he depends on his for a ride to hemodialysis; however, she has fallen ill and was unable to take him. At the time of clinical interview, the patient is hemodynamically stable. Afebrile. Respiratory rate 24; however, ABG on room air was 6.81/23/142. He does demonstrate some mild confusion but is awake, alert and oriented to time person place and situation. He denies fever or chills. He denies sick contacts. Initial laboratory evaluation was notable for a creatinine of 13.81. Lactate 28.9. Lipase 1032.8. Hospital Course Hospital Course: The patient came in with severe metabolic acidosis. He has recovered quite nicely. After discussing with Dr. Stone it is most likely from resuming Metformin in a hemodialysis patient. He continued his hemodialysis and was given fluids. Severe acidosis was treated. He did very well with hemodialysis today. His lipase is 16,000 but this is down from 38,000. He has been eating since yesterday morning and has no nausea, vomiting, abdominal pain or tenderness in the epigastrium. From a nephrology standpoint he is stable for discharge. Dr. Stone felt that antibiotics were not necessary as this was more likely a metabolic phenomenon as opposed to infectious. He cannot utilize Metformin under any circumstances and I have suggested that he in fact discard the medication completely. He will discharged tonight as he has outpatient dialysis tomorrow. If not he will have until Sunday before his next dialysis. Therefore the benefits of discharge today outweigh the risks especially since he has been doing so well. I did ask him to hold his Lasix temporarily as he may be on the dry side. He will likely be able to start it next week. He will return to his glimepiride and Tradjenta and continue Accu-Cheks. If his Accu-Cheks are elevated then follow-up with his primary care provider (next appointment 06/18/2020) for further medication adjustments. Physical Exam Vital Signs: Temp Pulse Resp BP Pulse Ox 98.6 F 81 20 148/60 H 93 06/11/20 11:15 06/11/20 14:00 06/11/20 11:15 06/11/20 11:15 06/11/20 11:15 Intake & Output 06/10/20 06/11/20 06/12/20 06:59 06:59 06:59 Intake Total 1122 900 120 Output Total 1100 1075 125 Balance 22 -175 -5 Weight 87.8 kg 84.9 kg General appearance: PRESENT: no acute distress, cooperative, well-developed, other - Currently on hemodialysis Head exam: PRESENT: atraumatic, normocephalic Ear exam: PRESENT: normal external ear exam. ABSENT: bleeding, drainage Respiratory exam: PRESENT: clear to auscultation rosi, symmetrical, unlabored. ABSENT: rales, rhonchi, tachypnea, wheezes Cardiovascular exam: PRESENT: RRR, +S1, +S2. ABSENT: bradycardia, diastolic murmur, irregular rhythm, systolic murmur, tachycardia GI/Abdominal exam: PRESENT: normal bowel sounds, soft. ABSENT: distended, tenderness Rectal exam: PRESENT: deferred Gentrourinary exam: ABSENT: indwelling catheter Extremities exam: ABSENT: pedal edema Musculoskeletal exam: PRESENT: ambulatory Neurological exam: PRESENT: alert, awake, oriented to person, oriented to place, oriented to time, oriented to situation, CN II-XII grossly intact. ABSENT: altered Psychiatric exam: PRESENT: appropriate affect, normal mood. ABSENT: agitated, anxious Focused psych exam: ABSENT: delusional, paranoid, restlessness Skin exam: PRESENT: dry, normal color, warm. ABSENT: rash Results Laboratory Results: WBC 9.1 10^3/uL (4.0-10.5) 06/11/20 05:19 RBC 3.03 10^6/uL (4.35-5.55) L 06/11/20 05:19 Hgb 9.7 g/dL (13.5-17.0) L 06/11/20 05:19 Hct 28.4 % (37.9-51.0) L 06/11/20 05:19 MCV 94 fl (80-97) 06/11/20 05:19 MCH 32.0 pg (27.0-33.4) 06/11/20 05:19 MCHC 34.1 g/dL (32.0-36.0) 06/11/20 05:19 RDW 16.2 % (11.5-14.0) H 06/11/20 05:19 Plt Count 109 10^3/uL (150-450) L 06/11/20 05:19 Lymph % (Auto) 5.6 % (13-45) L 06/11/20 05:19 [place] % (Auto) 10.7 % (3-13) 06/11/20 05:19 Eos % (Auto) 0.3 % (0-6) 06/11/20 05:19 Baso % (Auto) 0.5 % (0-2) 06/11/20 05:19 Absolute Neuts (auto) 7.6 10^3/uL (1.7-8.2) 06/11/20 05:19 Absolute Lymphs (auto) 0.5 10^3/uL (0.5-4.7) 06/11/20 05:19 Absolute Monos (auto) 1.0 10^3/uL (0.1-1.4) 06/11/20 05:19 Absolute Eos (auto) 0.0 10^3/uL (0.0-0.6) 06/11/20 05:19 Absolute Basos (auto) 0.0 10^3/uL (0.0-0.2) 06/11/20 05:19 Total Counted 100 06/10/20 05:31 Seg Neutrophils % 82.9 % (42-78) H 06/11/20 05:19 Seg Neuts % (Manual) 88 % (42-78) H 06/10/20 05:31 Band Neutrophils % 1 % (3-5) L 06/10/20 05:31 Lymphocytes % (Manual) 4 % (13-45) L 06/10/20 05:31 Monocytes % (Manual) 7 % (3-13) 06/10/20 05:31 Eosinophils % (Manual) 0 % (0-6) 06/10/20 05:31 Basophils % (Manual) 0 % (0-2) 06/10/20 05:31 Abs Neuts (Manual) 7.8 10^3/uL (1.7-8.2) 06/10/20 05:31 Abs Lymphs (Manual) 0.4 10^3/uL (0.5-4.7) L 06/10/20 05:31 Abs Monocytes (Manual) 0.6 10^3/uL (0.1-1.4) 06/10/20 05:31 Absolute Eos (Manual) 0.0 10^3/uL (0.0-0.6) 06/10/20 05:31 Abs Basophils (Manual) 0.0 10^3/uL (0.0-0.2) 06/10/20 05:31 Platelet Estimate Cancelled 06/09/20 05:50 Platelet Comment ADEQUATE 06/10/20 05:31 Polychromasia SLIGHT 06/08/20 16:40 Poikilocytosis SLIGHT 06/08/20 16:40 Anisocytosis 1+ 06/08/20 16:40 Macrocytosis 2+ 06/08/20 16:40 Ovalocytes SLIGHT 06/08/20 16:40 [place] Cells SLIGHT 06/08/20 16:40 PT 16.5 SEC (11.4-15.4) H 06/08/20 10:37 INR 1.31 06/08/20 10:37 Carbonic Acid 0.98 mmol/L (1.05-1.35) L 06/09/20 04:50 HCO3/H2CO3 Ratio 17:1 06/09/20 04:50 ABG pH 7.34 (7.35-7.45) L 06/09/20 04:50 ABG pCO2 32.4 mmHg (35-45) L 06/09/20 04:50 ABG pO2 99.5 mmHg (80-100) 06/09/20 04:50 ABG HCO3 16.9 mmol/L (20-24) L 06/09/20 04:50 ABG Total CO2 17.9 mmol/L (23-27) L 06/09/20 04:50 ABG O2 Saturation 97.3 % (94-98) 06/09/20 04:50 ABG Base Excess -7.9 mmol/L 06/09/20 04:50 VBG pH 7.50 (7.30-7.42) H 06/09/20 20:21 VBG pCO2 37.4 mmHg (35-63) 06/09/20 20:21 VBG HCO3 28.6 mmol/L (20-32) 06/09/20 20:21 VBG Base Excess 5.2 mmol/L 06/09/20 20:21 Carboxyhemoglobin 1.0 % (0.5-1.5) 06/08/20 14:02 FiO2 40% 06/09/20 04:50 Sodium 135.4 mmol/L (137-145) L 06/11/20 05:19 Potassium 4.0 mmol/L (3.6-5.0) 06/11/20 05:19 Chloride 93 mmol/L (98-107) L 06/11/20 05:19 Carbon Dioxide 32 mmol/L (22-30) H 06/11/20 05:19 Anion Gap 10 (5-19) 06/11/20 05:19 BUN 66 mg/dL (7-20) H 06/11/20 05:19 Creatinine 9.49 mg/dL (0.52-1.25) H 06/11/20 05:19 Est GFR ( Amer) 7 (>60) L 06/11/20 05:19 Est GFR (Non-Af Amer) Cancelled 06/09/20 05:50 Est GFR (Non-Af Amer) Cancelled 06/09/20 05:50 Est GFR (MDRD) Non-Af 5 (>60) L 06/11/20 05:19 Glucose 96 mg/dL (75-110) 06/11/20 05:19 POC Glucose 180 mg/dL (70-110) H 06/11/20 11:12 Hemoglobin A1c % 7.3 % (4.7-6.0) H 06/09/20 05:50 Lactic Acid 1.6 mmol/L (0.7-2.1) 06/09/20 20:21 Calcium 7.4 mg/dL (8.4-10.2) L 06/11/20 05:19 Ionized Calcium [place] 0.90 mmol/L (1.14-1.30) L 06/11/20 05:19 Phosphorus 4.9 mg/dL (2.5-4.5) H 06/10/20 05:31 Magnesium 2.3 mg/dL (1.6-2.3) 06/10/20 05:31 Total Bilirubin 0.5 mg/dL (0.2-1.3) 06/10/20 05:31 Direct Bilirubin 0.4 mg/dL (0.0-0.4) 06/10/20 05:31 Neonat Total Bilirubin Not Reportable 06/10/20 05:31 Neonat Direct Bilirubin Not Reportable 06/10/20 05:31 Neonat Indirect Bili Not Reportable 06/10/20 05:31 AST 73 U/L (17-59) H 06/10/20 05:31 ALT 39 U/L (<50) 06/10/20 05:31 Alkaline Phosphatase 79 U/L (38-126) 06/10/20 05:31 Troponin I 0.017 ng/mL 06/08/20 10:37 NT-Pro-B Natriuret Pep 6930 pg/mL (<125) H 06/09/20 08:17 Total Protein 6.0 g/dL (6.3-8.2) L 06/10/20 05:31 Albumin 3.5 g/dL (3.5-5.0) 06/10/20 05:31 Triglycerides 140 mg/dL (<150) 06/08/20 10:35 Lipase 68190.4 U/L (23-300) H 06/11/20 05:19 EGFR Cancelled 06/09/20 05:50 EGFR Cancelled 06/09/20 05:50 Random Cortisol 51.20 ug/dL (None Established) 06/09/20 08:17 Urine Color STRAW 06/09/20 20:20 Urine Appearance CLEAR 06/09/20 20:20 Urine pH 9.0 (5.0-9.0) 06/09/20 20:20 Ur Specific [place] 1.006 06/09/20 20:20 Urine Protein 100 mg/dL (NEGATIVE) H 06/09/20 20:20 Urine Glucose (UA) 50 mg/dL (NEGATIVE) H 06/09/20 20:20 Urine Ketones TRACE mg/dL (NEGATIVE) H 06/09/20 20:20 Urine Blood MODERATE (NEGATIVE) H 06/09/20 20:20 Urine Nitrite (Reflex) NEGATIVE (NEGATIVE) 06/09/20 20:20 Urine Bilirubin NEGATIVE (NEGATIVE) 06/09/20 20:20 Urine Urobilinogen NEGATIVE mg/dL (<2.0) 06/09/20 20:20 Leukocyte Esterase Rfl SMALL (NEGATIVE) H 06/09/20 20:20 Urine RBC (Auto) 18 /HPF 06/09/20 20:20 Urine WBC (Reflex) 10 /HPF 06/09/20 20:20 Urine Ascorbic Acid NEGATIVE (NEGATIVE) 06/09/20 20:20 Time Trough Drawn 0519 06/11/20 05:19 Vancomycin Trough 7.8 ug/mL (5.0-20.0) 06/11/20 05:19 Salicylates < 1.0 mg/dL (2.0-20.0) L 06/08/20 10:35 Urine Opiates Screen NEGATIVE 06/09/20 20:20 Urine Methadone Screen NEGATIVE 06/09/20 20:20 Acetaminophen < 10 ug/mL (10-30) L 06/08/20 10:35 Ur Barbiturates Screen NEGATIVE 06/09/20 20:20 Ur Phencyclidine Scrn NEGATIVE 06/09/20 20:20 Ur Amphetamines Screen NEGATIVE 06/09/20 20:20 U Benzodiazepines Scrn NEGATIVE 06/09/20 20:20 Urine Cocaine Screen NEGATIVE 06/09/20 20:20 U Marijuana (THC) Screen NEGATIVE 06/09/20 20:20 Serum Alcohol < 10 mg/dL (NONE DETECTED) 06/08/20 10:35 Slides for Path Review Cancelled 06/09/20 05:50 06/08/20 06/09/20 06/09/20 10:37 05:50 08:17 Troponin I 0.017 NT-Pro-B Natriuret Pep Cancelled 6930 H Impressions: Chest X-Ray 06/08/20 00:00 IMPRESSION: Right subclavian catheter with the tip in the left subclavian. No pneumothorax. Lumbar Spine X-Ray 06/08/20 10:19 IMPRESSION: Grade 1 anterolisthesis of L5 on S1 with facet arthropathy at the lower 3 disc space levels. Chest X-Ray 06/08/20 11:04 IMPRESSION: NO ACUTE RADIOGRAPHIC FINDING IN THE CHEST. CHRONIC CHANGES INCLUDING CALCIFIED PLEURAL PLAQUES. Head CT 06/08/20 11:22 IMPRESSION: NORMAL BRAIN CT WITHOUT CONTRAST. EVIDENCE OF ACUTE STROKE: NO. Abdomen/Pelvis CT 06/08/20 13:04 IMPRESSION: CHRONIC CHANGES DESCRIBED. APPENDECTOMY AND LEFT NEPHRECTOMY. PERITONEAL DIALYSIS CATHETER PRESENT. CALCIFIED PLEURAL PLAQUES. NO ACUTE FINDING IN THE ABDOMEN OR PELVIS. NOTE THAT NO VASCULAR CONTRAST IS VISUALIZED DUE TO CONTRAST EXTRAVASATION. Chest CT 06/09/20 00:00 IMPRESSION: Cardiomegaly with mildly dilated mid ascending thoracic aorta. Small pleural effusions with extensive asbestos-related pleural disease. Plan Health Concerns: Patient absolutely must not take Metformin due to his renal failure. Further adjustments to his diabetic regimen can be made with his PCP as an outpatient. Plan of Treatment: Resume normal outpatient dialysis schedule. Continue Accu-Cheks and discuss any further changes in his diabetic regiment with his PCP. No antibiotics at discharge as it was felt that this was a completely metabolic incident from his Metformin. Discard Metformin and never use it again. Goals: Stabilize diabetic regimen with good control. Complete resolution of pancreatitis. Time Spent: Greater than 30 Minutes Stroke Is this a Stroke Patient?: No Acute Heart Failure Is this a Heart Failure Patient?: No
[2020-06-11 16:55] VITALS: BP 158/88
== END 2020-06-11 18:33 | disposition home or self-care (01) | DRG 438 ==
LOC: ER 09:43 → EH 16:14 → ICU 06-09 01:26 → 4N 06-09 18:04
PROVIDERS: ADMIT Internal Medicine Critical Care Medicine; ATTEND Hospitalist
PROC: 5A1D70Z Performance of Urinary Filtration, Intermittent, Less than 6 Hours Per Day (ICD-10-PCS; principal; 2020-06-08)
PROC: 05H633Z Insertion of Infusion Device into Left Subclavian Vein, Percutaneous Approach (ICD-10-PCS; 2020-06-08)
DX: K85.90 Acute pancreatitis without necrosis or infection, unspecified (principal); N18.6 End stage renal disease; I12.0 Hypertensive chronic kidney disease with stage 5 chronic kidney disease or end stage renal disease; E87.2 Acidosis; E11.649 Type 2 diabetes mellitus with hypoglycemia without coma; D63.1 Anemia in chronic kidney disease; E11.22 Type 2 diabetes mellitus with diabetic chronic kidney disease; Z99.2 Dependence on renal dialysis; E87.5 Hyperkalemia; E83.42 Hypomagnesemia; E78.5 Hyperlipidemia, unspecified; N40.0 Benign prostatic hyperplasia without lower urinary tract symptoms; M54.5 Low back pain; D50.9 Iron deficiency anemia, unspecified; Z79.84 Long term (current) use of oral hypoglycemic drugs; Z79.899 Other long term (current) drug therapy; Z90.5 Acquired absence of kidney; Z85.528 Personal history of other malignant neoplasm of kidney; Z83.3 Family history of diabetes mellitus; Z82.49 Family history of ischemic heart disease and other diseases of the circulatory system; Z80.42 Family history of malignant neoplasm of prostate
CPT/HCPCS: 36415; 36600; 70450; 71045; 71250; 72110; 74177; 80048; 80053; 80202; 80307; 81001; 82330; 82375; 82533; 82803; 82962; 83036; 83605; 83690; 83735; 83880; 84100; 84132; 84478; 84484; 85025; 85027; 85610; 87040; 87086; 93005; 93010; 96361; 96374; 96375; 96376; 99285; C9113; G0257; J0696; J1644; J1815; J2060; J3370; J3475; J3490; J7040; J7060; Q5105; S0119